=== PATIENT | female | born 2000 | race Caucasian/White ===

== ENCOUNTER 2023-10-21 16:36 | Emergency (ER) | payer OTHER, SELFPAY ==
--- NOTE | ~2023-10-21 | XR_ITS ---
EXAMINATION: XR WRIST, LEFT CLINICAL INFORMATION: Wrist pain, injury COMPARISON: None available. TECHNIQUE: PA, lateral, navicular, and oblique views of the left wrist. FINDINGS: The bones and soft tissues are normal. No fracture. Alignment is anatomic with normal joint spaces. No erosions or abnormal soft tissue calcifications. XR/XR wrist LT min 3V IMPRESSION: Normal left wrist.
[2023-10-21 17:11] VITALS: BP 140/90; PULSE 84; RESP 16; TEMP 36.8; O2SAT 100; BMI 27.3
--- NOTE | 2023-10-21 17:11 | ED_ITS ---
HPI - General Adult General Chief complaint: Extremity Injury, Upper Stated complaint: wrist inj 10/20 Time Seen by Provider: 10/21/23 18:28 Source: patient and family (patient's mother) Mode of arrival: ambulatory Limitations: no limitations History of Present Illness HPI narrative: Patient is a 23 year old assigned female at with no reported medical history presenting to the emergency department today with left hand pain. Patient states that yesterday she was playing rugby when she had her left hand crushed and rolled backwards. Patient states that the majority of her pain is at the base of the 1st and 2nd knuckles and the palm of the hand. Patient denies any head injury, loss of consciousness, dizziness, lightheadedness, abdominal pain, nausea, vomiting, fever, chills, blurry vision, double vision, loss of vision, chest pain, difficulty breathing, shortness of breath, back pain, night sweats, pain with urination, increased urinary frequency, increased urinary urgency, blood in her urine or stool, syncope or a near syncopal episode, bowel incontinence, bladder incontinence, bowel retention, bladder retention, or any other complaints at this time. Onset (ago): day(s) (1) Location: left and upper extremity Severity: mild Severity scale (1-10): 3 Quality: aching and dull Pain Consistency: constant Relieving factors: none Exacerbating factors: none Associated symptoms: denies other symptoms Treatments prior to arrival: none Related Data Allergies Allergy/AdvReac Type Severity Reaction Status Date / Time No Known Allergies Allergy Verified 10/21/23 17:15 [No Known Allergies*] Review of Systems Constitutional: Constitutional: Reports no additional constitutional complaints, Denies chills, Denies fever(s) and Denies night sweats Eyes: Eyes: Reports no additional eye complaints, Denies blurry vision, Denies change in vision, Denies diplopia, Denies eye discharge, Denies loss of vision and Denies eye pain ENT: Denies dizziness Cardiovascular: Cardiovascular: Reports no additional cardiovascular complaints, Denies chest pain, Denies lightheadedness, Denies Loss of Consciousness and Denies dyspnea Respiratory: Respiratory: Reports no additional respiratory complaints and Denies dyspnea Gastrointestinal: Gastrointestinal: Reports no additional gastrointestinal complaints, Denies abdominal pain, Denies melena, Denies hematochezia, Denies change in bowel habits and Denies change in stool character Genitourinary: Genitourinary: Denies hematuria, Denies urinary frequency, Denies dysuria, Denies urinary incontinence, Denies urinary hesitancy and Denies urinary urgency Musculoskeletal: Musculoskeletal: Reports no additional musculoskeletal complaints, Denies numbness and Denies tingling Comments: left hand pain Neurologic: Denies dizziness, Denies loss of vision, Denies numbness and Denies tingling Psychiatric: Psychiatric: Reports no additional psychiatric complaints Endocrine: Endocrine: Reports no additional endocrine complaints Hematologic/Lymphatic: Hematologic/Lymphatic: Reports no additional hematologic/lymphatic complaints Allergic/Immunologic: Allergic/Immunologic: Reports no additional allergic/ immunologic complaints PMFSH Past Medical History Attestation statement: The following information was validated with the patient. (all information validated with the patient's mother) Source: old records reviewed, obtained from family (patient's mother provided additional history and confirmed the history provided by the patient) and nursing notes reviewed Social History Social History Advance Directives: No Advance Directives Information Provided: No Physical Exam ED Vital Signs: Vital Signs - 24 hr 10/21/23 17:11 Temperature 98.2 F Pulse Rate 84 Respiratory Rate 16 Blood Pressure 140/90 H Pulse Oximetry 100 Oxygen Delivery Method Room Air BMI result Body Mass Index 27.3 Const General: cooperative, no acute distress, alert and awake Nutritional Appearance: well nourished Orientation/consciousness: patient oriented x3 Limitations: no limitations HENMT Head: Yes normal to inspection and Yes atraumatic Ears: hearing grossly normal bilaterally and external ears normal General nose exam: Normal external nose present, no nasal discharge noted and no epistaxis Face and sinus: Yes normal facial exam, No abrasion and No laceration Mouth: Normal oral and palatal mucosa present, no drooling and no muffled voice Eyes General: appearance normal, both eyes and all related structures Periorbital: periorbital findings normal Eyelids: Yes eyelids normal Conjunctivae: conjunctivae normal Pupils: Equal, round and reactive pupils present EOM: EOMs intact bilaterally Neck Neck: Yes normal visual inspection, Yes full ROM and Yes no lymphadenopathy Chest Chest palpation & inspection: normal inspection of the chest Resp Effort & Inspection: normal respiratory effort and able to speak in complete sentences GI Inspection: Yes normal to inspection Neuro General: patient oriented x3 and moves all extremities Cranial nerves: Yes Equal, round and reactive pupils present Cognition (Neuro): normal cognition Motor exam (neuro): 5/5 motor strength present throughout Sensory Exam: Normal double simultaneous stimulation for sensation Coordination: [id number] test normal Extrem Other: swelling to the dorsal aspect of the left hand with bruising present to the plamar aspect. Point tenderness at the base of the 2nd metacarpal General: Yes full ROM and Yes capillary refill normal Psych Appearance: grossly normal Mental Status: mental status grossly normal Affect: normal affect Attitude: cooperative Thought process: Normal thought process present Thought content: Normal thought content present Insight: Good insight present (Psych) Course Course Course Narrative: RME performed by Maliha Sierra PA-C. Patient is a 23 year old assigned female at presenting to the emergency department with left wrist pain. Imaging ordered. Patient placed back in the waiting room pending room availability and results. Procedures Orthopedic Splinting/Casting Injury #1: Side: left Upper Extremity Injury Location: wrist and hand Upper Extremity Immobilizer: volar splint Medical Decision Making Medical Decision Making MDM Narrative: Patient is a 23 year old assigned female at with no reported medical history presenting to the emergency department today with left hand pain. Patient's physical exam was as noted in the physical exam portion of this note. Patient's left hand x-ray was interpreted as normal however, I noted a possible fracture at the base of the 2nd metacarpal. Given the patient's physical exam findings and my reading of the XR, patient's has was splinted in a volar splint, without incident. Patient's PMS was intact prior to and after splint placement. I explained my physical exam findings as well as all test results to the patient and the patient's mother. I answered all questions asked by the patient and the patient's mother. I stressed the importance of the patient taking her medication as prescribed. I stressed the importance of the patient following up with her primary care provider and an orthopedic provider. I stressed the importance of the patient returning to the emergency department immediately if her symptoms were to worsen or if she were to develop any dizziness, shortness of breath, difficulty breathing, chest pain, blurry vision, loss of vision, nausea, vomiting, abdominal pain, fever, chills, back pain, or any other complaints. Patient and the patient's mother verbalized agreement and understanding with this treatment plan and discharge. Differential Diagnosis Differential Diagnoses: The differential diagnosis associated with the presentation includes Left hand pain Left hand sprain Left hand fracture Independent Interpretation I performed an independent interpretation of an: Plain X-Ray Interpretation: My interpretation of this plain x-ray is in the MDM Rationale portion of this note. Below is the interpretation from the radiologist. ------ EXAMINATION: XR WRIST, LEFT CLINICAL INFORMATION: Wrist pain, injury COMPARISON: None available. TECHNIQUE: PA, lateral, navicular, and oblique views of the left wrist. FINDINGS: The bones and soft tissues are normal. No fracture. Alignment is anatomic with normal joint spaces. No erosions or abnormal soft tissue calcifications. XR/XR wrist LT min 3V IMPRESSION: Normal left wrist. Dictated By: Meng Coker MD Signed By: Electronically signed by Meng Coker MD 10/21/23 3711 Radiology Impression Discussion of test interpretation with radiology: I have reviewed the radiologist's reading. Independent Historian Clinical information obtained from an independent historian. History obtained from or confirmed by: Parent (patient's mother provided additional history and confirmed the history provided by the patient.) Discharge Plan Discharge Clinical Impression: Fracture of hand Patient Disposition: Home, Self-Care Instructions: Hand Fracture (ED) Additional Instructions: Follow up with your primary care provider and an orthopedic provider. Return to the emergency department immediately if your symptoms worsen or if you develop any dizziness, shortness of breath, difficulty breathing, chest pain, blurry vision, loss of vision, nausea, vomiting, abdominal pain, fever, chills, back pain, or any other complaints. Referrals: [facility] Family Medicine [Provider Group] (Call to establish and follow up with a primary care provider. If you already have a primary care provider, please follow up with them.) [facility] Primary Care, Sandra [Provider Group] (Call to establish and follow up with a primary care provider. If you already have a primary care provider, please follow up with them.) [facility] Primary Care,Zak [Provider Group] (Call to establish and follow up with a primary care provider. If you already have a primary care provider, please follow up with them.) [facility] [place] [facility] [Provider Group] (Call to establish and follow up with an orthopedic provider.) Stand Alone Forms: Work/School Release Interventions: ED Discharge Assessment Last Done: 10/21/23 18:57 Discharge Date/Time: 10/21/23 18:57 Print Language: Bermudian
== END 2023-10-21 18:57 | disposition home or self-care (01) ==
PROVIDERS: Emergency Provider Student in an Organized Health Care Education/Training Program
DX: S62.92XA Unspecified fracture of left hand, initial encounter for closed fracture (principal); W23.0XXA Caught, crushed, jammed, or pinched between moving objects, initial encounter; Y93.63 Activity, rugby; Y92.9 Unspecified place or not applicable; Y99.9 Unspecified external cause status
CPT/HCPCS: 29125; 73110; 99282; 99283

== ENCOUNTER 2023-11-01 08:29 | Outpatient (REF) | payer OTHER, SELFPAY ==
--- NOTE | ~2023-11-01 | XR_ITS ---
EXAMINATION: XR HAND, LEFT CLINICAL INFORMATION: Pain. COMPARISON: Radiographs dated 10/21/2023. TECHNIQUE: PA, lateral, and oblique views of the left hand. FINDINGS: The bones and soft tissues are normal. No fracture. Alignment is anatomic. Joint spaces are maintained. No erosions or soft tissue calcifications. XR/XR hand LT min 3V IMPRESSION: Normal left hand.
== END 2023-11-01 08:30 | disposition home or self-care (01) ==
LOC: HO.HOSX 08:29
PROVIDERS: Visit Provider Physician Assistant
DX: S62.301A Unspecified fracture of second metacarpal bone, left hand, initial encounter for closed fracture (principal)
CPT/HCPCS: 73130

== ENCOUNTER 2023-11-01 08:29 | Outpatient (AMB) | payer OTHER, SELFPAY ==
--- NOTE | 2023-11-01 08:37 | A.OFFVIS_ITS ---
Intake Vital Signs 11/01/23 08:44 Height 5 ft 3 in Weight 153 lb BMI 27.1 Intake Visit Reasons: FC - Left hand fx, DOI 10/20/23 Intake Note: Leila 23 yr old female who is left hand dominant presents today for her left hand injury s/ ED visit. .Patient states on 10/20/23 she was playing rugby when she had her left hand crushed and rolled backwards. Patient states that the majority of her pain is at the base of the 1st and 2nd knuckles and the palm of the hand. States she was splinted. Currently states her pain is mild. Alverto numbness and tingling. Allergies No Known Allergies [No Known Allergies*] Allergy (Verified 11/01/23 08:39) HPI FC - Left hand fx, DOI 10/20/23 HPI Details Ms. Smith is a 23 yo left hand dominant female who presents to the office today for evaluation of left hand pain. She states that roughly two weeks ago she was playing rugby and went to score a try and while placing the ball down her hand rolled forward hyperextending and points to the level of the MCP's. She had immediate pain and was seen at the [facility] ED were x-rays were obtained and there was a question of a fracture at the proximal end of the second metacarpal. She was placed into a splint and instructed to follow-up out patient for further evaluation and treatment. 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 Edema located over the second metacarpal base at the fracture site accompanied by tenderness to palpation. No tenderness to palpation in the anatomical snuff box or scaphoid tubercle. Able to make a full fist and perform full extension, abduction, adduction, finger cross, okay sign, and thumbs up without deficit. Sensation is intact. Radial pulse intact. capillary refill brisk. Office Procedures Fracture Care Fracture Billing Code: Fracture Billing Code Assessment & Plan Assessment & Plan (1) Fracture of second metacarpal bone of left hand: Code(s): S62.301A - Unspecified fracture of second metacarpal bone, left hand, initial encounter for closed fracture Plan: Ms. Smith is a 23 yo left hand dominant female who presents to the office today for evaluation of left hand pain. She states that roughly two weeks ago she was playing rugby and went to score a try and while placing the ball down her hand rolled forward hyperextending and points to the level of the MCP's. She had immediate pain and was seen at the [facility] ED were x-rays were obtained and there was a question of a fracture at the proximal end of the second metacarpal. She was placed into a splint and instructed to follow-up out patient for further ev aluation and treatment. The patient was placed in a velcro wrist splint that comes up higher on the MCP's off the shelf. There is no concern for a scaphoid fracture at this time on physical exam nor repeat x-rays that were obtained in the office today and reviewed by me, Liseth Lopez PA-C. On x-rays there is redemonstration of the second metacarpal base fracture with minimal displacement. She was instructed no lifting greater than coffee cup or cell phone. She may come out of the splint for hand washing and bathing. I would like to see her back in 4 weeks with repeat x-rays sooner if needed. Orders: Orders XR hand LT min 3V Today M79.643 - Pain in unspecified hand Coding Level of Care Code New Pt Level 4 (67926) Diagnoses Fracture of second metacarpal bone of left hand S62.301A CPT Codes Fracture Care - Fracture Billing Code: Fracture Billing Code ([id number])
[2023-11-01 08:44] VITALS: BMI 27.1
== END 2023-11-01 09:18 | disposition home or self-care (01) ==
PROVIDERS: Visit Provider Physician Assistant
DX: S62.301A Unspecified fracture of second metacarpal bone, left hand, initial encounter for closed fracture (principal)
CPT/HCPCS: 99203

== ENCOUNTER 2023-12-06 09:13 | Outpatient (REF) | payer OTHER, SELFPAY ==
--- NOTE | ~2023-12-06 | XR_ITS ---
EXAMINATION: XR HAND, LEFT CLINICAL INFORMATION: Pain COMPARISON: 11/01/2023 TECHNIQUE: PA, lateral, and oblique views of the left hand. FINDINGS: The bones and soft tissues are normal. No fracture. Alignment is anatomic. Joint spaces are maintained. No erosions or soft tissue calcifications. XR/XR hand LT min 3V IMPRESSION: Normal left hand, without interval change.
== END 2023-12-06 09:14 | disposition home or self-care (01) ==
LOC: HO.HOSX 09:13
PROVIDERS: Visit Provider Physician Assistant
DX: S62.301D Unspecified fracture of second metacarpal bone, left hand, subsequent encounter for fracture with routine healing (principal)
CPT/HCPCS: 73130

== ENCOUNTER 2023-12-06 10:49 | Outpatient (AMB) | payer OTHER, SELFPAY ==
--- NOTE | 2023-12-06 11:19 | MHC.OFFVIS ---
Intake Intake Visit Reasons: OV- Left hand fx, DOI 10/20/23 Intake Note: Leila is a 23 year old female who presents today for a follow up for her left hand fx, DOI 10/20/23. patient reports having discomfort on the palm of her hand when she tries to open lids. Allergies No Known Allergies [No Known Allergies*] Allergy (Verified 11/01/23 08:39) HPI OV- Left hand fx, DOI 10/20/23 HPI Details 23-year-old left hand dominant female who presents in the office today for a follow up on a fracture of the left second metacarpal. I last saw the patient in the office on 11/01/2023 where she was placed in a velcro wrist splint and she instructed no lifting greater than a coffee cup or cell phone. She was told she may come out of the splint for hand washing or bathing. While in the office today the patient reports having discomfort on the palm of her left hand when she tries to open lids. 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 Edema located over the second metacarpal base at the fracture site has resolved with no tenderness to palpation. No tenderness to palpation in the anatomical snuff box or scaphoid tubercle. Able to make a full fist and perform full extension, abduction, adduction, finger cross, okay sign, and thumbs up without deficit. Slight evaluation analyst strength weakness. Sensation is intact. Radial pulse intact. capillary refill brisk. Assessment & Plan Assessment & Plan (1) Fracture of second metacarpal bone of left hand: Code(s): S62.301A - Unspecified fracture of second metacarpal bone, left hand, initial encounter for closed fracture Qualifiers: Encounter type: subsequent encounter Fracture alignment: nondisplaced Fracture healing: with routine healing Fracture type: closed Metacarpal location: unspecified portion of metacarpal Qualified Code(s): S62.301D - Unspecified fracture of second metacarpal bone, left hand, subsequent encounter for fracture with routine healing Plan Ms. Smith is a 23-year-old left hand dominant female who presents in the office today for a follow up on a fracture of the left second metacarpal. I last saw the patient in the office on 11/01/2023 where she was placed in a velcro wrist splint and she instructed no lifting greater than a coffee cup or cell phone. She was told she may come out of the splint for hand washing or bathing. While in the office today the patient reports having discomfort on the palm of her left hand when she tries to open lids. The patient may discontinue the velcro wrist splint at this time. I would encourage her to attend occupational therapy to work on evaluation analyst strength. She should complete all visits until evaluation analyst strength returns back to normal and she can progress to normal activities as tolerated. Follow up will be PRN, or sooner if needed. X-rays of the left hand which were obtained while in the office today and were reviewed by me, Liseth Lopez PA-C, revealed routine healing of a left second metacarpal fracture. Orders: Orders XR hand LT min 3V Today M79.643 - Pain in unspecified hand OT Evaluation and Treatment Today S62.301A - Unspecified fracture of second metacarpal bone, left hand, initial encounter for closed fracture, S62.308A - Unspecified fracture of other metacarpal bone, initial encounter for closed fracture Patient Instructions: Scribed for Liseth Lopez PA-C by Stephanie Theodore biomedical engineering aide, on 12/06/2023 at 10:50 am, EST. Coding Level of Care Code Est Pt Level 3 (78206) Diagnoses Closed nondisplaced fracture of second metacarpal bone of left hand with routine healing, unspecified portion of metacarpal, subsequent encounter S62.301D Encounter type: subsequent encounter Fracture alignment: nondisplaced Fracture healing: with routine healing Fracture type: closed Metacarpal location: unspecified portion of metacarpal
== END 2023-12-06 11:29 | disposition home or self-care (01) ==
PROVIDERS: Visit Provider Physician Assistant
DX: S62.301D Unspecified fracture of second metacarpal bone, left hand, subsequent encounter for fracture with routine healing (principal)
CPT/HCPCS: 99213

== ENCOUNTER 2024-12-04 09:53 | Outpatient (AMB) | payer BC, SELFPAY ==
--- NOTE | 2024-12-04 10:13 | A.OFFPC_ITS ---
Vital Signs 12/04/24 10:21 12/04/24 17:33 Height 5 ft 3 in Weight 157 lb BMI 27.8 BP 122/70 Blood Pressure Location Rt brachial Position Sitting Respiration 13 Pulse 110 H 90 Pulse Source Pulse Oximeter Auscultation Pulse Oximetry (%) 98 Oxygen Delivery Method Room Air Intake Visit Reasons: Est. 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: No Allergies No Known Allergies [No Known Allergies*] Allergy (Verified 12/04/24 10:31) Medication List - [facility] 12[facility]04[facility]24 [facility] No Known Home Meds Tobacco use date assessed: 12/04/24 Dental Screening Dental Screen Date: 12/04/24 Did you have a dental visit in the last 12 months?: No Did you have a dental problem in the last 6 months where you did not have access to dental care?: No Was dental information given to patient?: Patient has dentist HPI HPI Comments History of Present Illness Details 24 y/o F with Surgical hx: none Family hx: thyroid cancer maternal great uncle Social hx: living w/ Mom and Dad; 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 Health Maintenance: Tdap today Flu declined Pap January 2023, repeat 2023 @ [facility]; now at [facility] Special[facility]: MOSAICIST Here today to est care and for a CPE No previous medical records avail. c/o L sided neck lumps. The lumps were first noticed a few months ago when the patient was sick. They have not changed in size since appearing. The patient reports they do not hurt but is concerned about their presence. The lumps appeared in conjunction with a sickness episode and have been stable since then. She mentions a history of strep throat last year for which antibiotics were prescribed, but no antibiotics have been taken for the current condition. The patient denies smoking. Her family history includes a great uncle with thyroid cancer. She reports no recent lab work or blood tests. In addition, the patient has a history of a spinal fracture attributed to gymnastics as well as a suspected musculoskeletal dent in her left thigh, possibly related to swimming. No surgeries have been performed for these conditions. She occasionally consults a chiropractor for these issues. The patient also mentioned having regular Pap smears with the most recent results reported as normal. There is a noted history of a period of anxiety, described as lifelong, without a specific inciting event, related to health. Review of Systems - Lymphatic: Reports lumps in the neck - Musculoskeletal: Reports a history of spinal fracture and musculoskeletal dent in the back - Respiratory: Denies shortness of breat h - Psychiatric: Reports being anxious Exam: General: Well developed, well nourished, in no acute distress. Appears stated age. Head: Normocephalic, atraumatic. Eyes: Pupils are equal, round and reactive to light and accommodation. Conjunctivae are clear. Vision grossly normal. Ears: TMs clear AU, EACS WNL Nose: Patent, scant yellow d/c w/o sinus tenderness . Mouth: There are no ulcers or lesions noted. No inflammation, no post nasal drip, no plaques nor exudates. Neck: Supple,no thyromegaly or tenderness. There are palpable soft anterior cervical lymphnodes bilat more prominent on the L, nontender; there is also shotty adenopathy along manible bilat, again more on L Lungs: Clear to auscultation bilaterally. No rales, rhonchi or wheeze noted. Good air flow in all gonzalez. Heart: Regular rate and rhythm. No murmurs, click, rubs or gallops are noted. Abdomen: Bowel sounds present in all quadrants. The abdomen is soft, nontender, with no masses or organomegaly noted. No hernias are noted. Musculoskeletal: Joints are nontender, without swelling, redness, or effusions. Range of motion is observed to be normal. She has two indents in her L quad muscle when she contracts this muscle. Pulses: Peripheral pulses are equal and palpable bilaterally. Extremities: No clubbing, cyanosis nor edema is noted. Neurologic: Gait and station normal. Cranial Nerves 2-12 intact. Motor strength grossly symmetrical and intact. No sensory loss. Balance normal. Skin: No rashes, ulcers, or lesions noted. Turgor is good. Skin color is good. Hair and nails are without abnormalities. Psych: Normal eye contact, affect and mood appropriate, and normal interactions. Patient is alert and appropriate to context. Plan - Conduct laboratory tests - Arrange MRI for musculoskeletal evalua tion due to unusual dent in Quad on L . - Administer tetanus vaccination. - Consider ultrasound of the neck if lab results indicate necessity or CT imaging w/ contrast. - Monitor neck lumps for changes, consid er further imaging if persistent. Patient was informed and verbally consented to the use of an ambient scribe for clinic note documentation during this visit. Discussion Notes I discussed the possible causes of the neck lumps, noting that they might be reactive lymph nodes. Given the family history of thyroid cancer, we will start with laboratory tests to rule out thyroid dysfunction and other causes of lymphadenopathy. The musculoskeletal issues related to the quad dent were reviewed, and an MRI was recommended to clarify the musculoskeletal structure. For the lumps, if labs suggest further evaluation, an ultrasound of the neck may be pursued, but a CT scan is not preferred due to radiation exposure unless absolutely necessary. The patient was informed about having vaccinations updated, and the possibility of an orthopedic referral was mentioned in case the MRI indicates specific musculoskeletal pathology. Follow-up will occur post-MRI results. Patient Instructions - Get the tetanus shot today. - Proceed with lab tests as directed. - Watch for any changes in the neck lump s and report them immediately. - Anticipate MRI scheduling for further examination of the back. - Use the patient portal for communicati on and appointment scheduling. - Follow up with any results or concerns as discussed today. RTO 6-8 weeks to review testing results, sooner PRN This note is constructed using voice recognition software. While every effort has been made to ensure accuracy in tube former operator, still errors may have been included Sometimes, these errors may affect the content or meaning of the given sentence . An additional 30 minutes was spent addressing the problem(s) noted at todays visit. This includes time spent before the visit reviewing the chart, time spent during the visit, and time spent after the visit on documentation [facility] Medical History (Updated 12/04/24 @ 17:32 by Larisa Nichols, [facility]) Fracture of second metacarpal bone of left hand Fracture of second metacarpal bone Hand fracture, left Spinal compression fracture Spinal fracture of T12 vertebra Surgical History (Updated 12/04/24 @ 10:20 by Tyrone King MA) No pertinent past surgical history Family History Father Mental health disorder Paternal Grandfather Cancer Paternal Grandmother Cancer Maternal Grandmother Cancer Diabetes Brother Asthma Mother Thyroid disease Social History (Updated 12/04/24 @ 10:17 by Tyrone King MA) Household Members: Family Housing: House Are you a primary complex care nurse to a significant other at home: No Do you presently have visiting nurse or other home services: No Alcohol intake: current Alcohol intake frequency: a few times a month Patient Tobacco Use Status: Never used Tobacco e-Cigarette/Vaping Use: Never Used Second Hand Smoke Exposure: No service: No Current occupational status: employed 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 1. Little interest or pleasure in doing things: not at all 2. Feeling down, depressed, or hopeless: not at all 3. Trouble falling or staying asleep, or sleeping too much: several days 4. Feeling tired or having little energy: not at all 5. Poor appetite or overeating: not at all 6. Feeling bad about yourself - or that you are a failure or have let yourself or your family down: not at all 7. Trouble concentrating on things, such as reading the newspaper or watching television: not at all 8. Moving or speaking so slowly that other people could have noticed. Or the opposite - being so fidgety or restless that you have been moving around a lot more than usual: not at all 9. Thoughts that you would be better off or of hurting yourself in some way: not at all Total score: 1 Depression Screening Interpretation: Negative Depression Screening Done: Yes 00196 - PHQ-9 Billing: Yes Source: Developed by Drs. Jimbo Child, Cynthia Mcguire, Demetrio Mcmanus and colleagues, with an educational catrachito from [employer]. Thrive Questionnaire Date Thrive assessed: 12/04/24 I am a: Patient What is your living situation today?: I have a steady place to live Within the past 12 months, did the food you bought not last and you didn't have the money to get more?: Never true Within the past 12 months, did you worry whether your food would run out before you got money to buy more?: Never true Do you have trouble paying for medicines?: No Do you have trouble getting transportation to medical appointments?: No Do you have trouble paying your heating and electricity bill?: No Do you have trouble taking care of your child, family member or friend?: No Do you have trouble with day-to-day activities such as bathing, preparing meals, shopping, managing finances, etc.?: No Are you currently unemployed and looking for a job?: No Are you interested in more education?: No Please select the resources that you would like help with: None Currently or been in a relationship where the following occur: No concerns reported THRIVE Score: 0 AUDIT C Alcohol Use Questionnaire (AUDIT-C) 1. How often do you have a drink containing alcohol?: Monthly or less 2. How many drinks containing alcohol do you have on a typical day when you are drinking?: 3 or 4 3. How often do you have six or more drinks on one occasion?: Never Total Score: 2 Score Reviewed/Action Taken: Yes ABA-7 AMB Questionnaire ABA-7 Date ABA - 7 assessed: 12/04/24 Feeling nervous, anxious, or on edge: 1 = Several days Not being able to stop or control worryin = Not at all Worrying too much about different things: 0 = Not at all Trouble relaxin = Not at all Being so restless that it is hard to sit still: 0 = Not at all Becoming easily annoyed or irritable: 0 = Not at all Feeling afraid as if something awful might happen: 0 = Not at all Total ABA-7 score (0-4 normal; 5-9 mild; 10-14 moderate; 15-21 severe): 1 Source: Developed by Drs. Jimbo Child, Cynthia Mcguire, Demetrio Mcmanus and colleagues, with an educational catrachito from [employer]. ABA-7 Assessment Billing ABA-7 Assessment Tool: ABA-7 Assessment 39860 Physical exam (Primary Care) Vital Signs: Last Vital Signs Pulse 110 H 12/04/24 10:21 Resp 13 12/04/24 10:21 BP 122/70 12/04/24 10:21 Pulse Ox 98 12/04/24 10:21 Oxygen Delivery Method Room Air 12/04/24 10:21 BMI result Body Mass Index 27.8 Tobacco/Smoking Status: Tobacco use Status Tobacco use date assessed 12/04/24 12/04/24 10:23 Patient Tobacco Use Status Never used Tobacco 12/04/24 10:23 e-Cigarette/Vaping Use Never Used 12/04/24 10:23 PHQ-9: PHQ-9 Score PHQ-9: Total score 1 12/04/24 17:10 Depression Screening Interpretation: Negative Thrive Assessment: Date of Thrive Assessment Date Thrive assessed 12/04/24 12/04/24 10:13 Currently or been in a relationship where the following occur: No concerns reported Immunizations Boostrix Tdap 2.5 Lf unit-8 mcg-5 Lf/0.5 mL intramuscular syringe Performing Provider: DEANDRA Barbosa Performing Location: [facility] Administered by: Denise Cantu RN on 12/04/24 10:59 Dose Route Admin Location Dispensed Lot Number Expiration Date [facility] Aircraft 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 Repairer 0.5 mL IM Right Deltoid 0.5 mL [id number] 02/17/27 [id number] OMG VIS Given Date VIS Provided VIS Publication Date 12/04/24 Single Vaccine 21 Eligibility Eligibility Date Funding Source Not [facility] Eligible 12/04/24 Private Coding Level of Care Code New Pt Level 3 (08273) New Pt Prev Care 18-39yr(87861 Diagnoses Encounter for general adult medical examination with abnormal findings Z00.01 Laboratory exam ordered as part of routine general medical examination Z00.00 Need for Tdap vaccination Z23 Influenza vaccination declined Z28.21 Injury of quadriceps muscle S76.109A Lymphadenopathy R59.1 History of compression fracture of spine Z87.81 History of fracture of wrist Z87.81 Family history of thyroid cancer Z80.8 Anxiety about health R45.89 Encounter to establish care Z76.89 Additional Codes ABA-7 Assessment Billing - ABA-7 Assessment Tool: ABA-7 Assessment 20984 ([id number]) PHQ-9 - 14004 - PHQ-9 Billing: Yes ([id number]) Assessment & Plan Assessment & Plan (1) Encounter for general adult medical examination with abnormal findings: Code(s): Z00.01 - Encounter for general adult medical examination with abnormal findings (2) Laboratory exam ordered as part of routine general medical examination: Code(s): Z00.00 - Encounter for general adult medical examination without abnormal findings Category: Medical (3) Need for Tdap vaccination: Code(s): Z23 - Encounter for immunization (4) Influenza vaccination declined: Code(s): Z28.21 - Immunization not carried out because of patient refusal (5) Injury of quadriceps muscle: Code(s): S76.109A - Unspecified injury of unspecified quadriceps muscle, fascia and tendon, initial encounter Category: Medical (6) Lymphadenopathy: Code(s): R59.1 - Generalized enlarged lymph nodes Category: Medical (7) History of compression fracture of spine: Comment: t12 Code(s): Z87.81 - Personal history of (healed) traumatic fracture Category: Medical (8) History of fracture of wrist: Comment: left Code(s): Z87.81 - Personal history of (healed) traumatic fracture Category: Medical (9) Family history of thyroid cancer: Code(s): Z80.8 - Family history of malignant neoplasm of other organs or systems Category: Medical (10) Anxiety about health: Code(s): R45.89 - Other symptoms and signs involving emotional state Category: Medical (11) Encounter to establish care: Code(s): Z76.89 - Persons encountering health services in other specified circumstances Plan , Orders: Orders Hemoglobin A1c Today Z00.00 - Encounter for general adult medical examination without abnormal findings Lipid Panel Today Z00.00 - Encounter for general adult medical examination without abnormal findings TDaP Immunization Today Z23 - Encounter for immunization Erythrocyte Sedimentation Rate Today R59.1 - Generalized enlarged lymph nodes Complete Blood Count no Diff Today Z00.00 - Encounter for general adult medical examination without abnormal findings Comprehensive Met. Panel Today Z00.00 - Encounter for general adult medical examination without abnormal findings Microalbumin, Random (w Creat) Today Z00.00 - Encounter for general adult medical examination without abnormal findings TSH reflex Free T4 Today Z00.00 - Encounter for general adult medical examination without abnormal findings Vitamin D 25-OH Total Today Z00.00 - Encounter for general adult medical examination without abnormal findings Thyroid Peroxidase Antibodies Today Z00.00 - Encounter for general adult medical examination without abnormal findings MR femur LT w con Today S76.109A - Unspecified injury of unspecified quadriceps muscle, fascia and tendon, initial encounter CRP High Sensitivity Today R59.1 - Generalized enlarged lymph nodes Patient Instructions: Walk-In Care (Urgent Care): We Make it Easy Walk-in for urgent medical issues such as: ? Seasonal Allergies ? Insect Bites ? Cough ? Diarrhea ? Acute Asthma Attacks ? Back, Knee or Joint Pain ? Ear Infection ? Fever without a Rash ? Headaches ? Nausea ? [place], Rash or Skin Irritation ? Sore Throat ? Sports Physicals ? Vomiting Most insurances are accepted. Patients do not need to be part of the [facility] to seek care at the walk-in clinic. Locations [address] [facility] [place] [address] ? [phone] [facility] Walk-In Care in [place] provides services to ages 18 and over. Open Saturday-Saturday: 8 a.m. to 5 p.m. and Saturday: 9 a.m. to 3 p.m.* *Hours may vary due to staffing availability. To confirm Walk-In Care hours in [place], please call [phone]. [address] [place] [address] ? [phone] [facility] Walk-In Care in [place] provides services to ages 12 and over. Open Saturday-Saturday: 8 a.m. to 5 p.m. Hours may vary due to staffing availability. To confirm Walk-In Care hours in [place], please call [phone]. LABORATORY SERVICES: [facility] ? Primary Location [address] [place] [address] Saturday through Saturday 6:00 AM ? 5:00 PM Saturday 7:00 AM ? 11:00 AM* [phone] The [facility] is centrally located near the front entrance of the Medical Center for easy outpatient access. Convenient parking is provided for outpatients. *Hours may vary due to staffing availability. To confirm Laboratory hours for any location, please call [phone]. Offsite Location For your convenience, we offer offsite laboratory draw stations at the following locations: [address] [place] [address] ? [facility] [address], [address] [place] [address] Saturday through Saturday 7:30 AM ? 1:00 PM* [phone] *Hours may vary due to staffing availability. To confirm Laboratory hours for any location, please call [phone]. [place] ? [address] Saturday through Saturday 6:00 AM ? 3:30 PM* Saturday 6:30 AM ? 3 PM* [phone] *Hours may vary due to staffing availability. To confirm Laboratory hours for any location, please call [phone]. [address] [facility] Saturday through Saturday 7:30 AM ? 4:00 PM* [phone] *Hours may vary due to staffing availability. To confirm Laboratory hours for any location, please call [phone]. [address] [facility] Saturday through 9:00 AM ? 4:00 PM* *Hours may vary due to staffing availability. To confirm Laboratory hours for any location, please call [phone]. Appointments are not necessary. Walk-ins are welcome. Like all the departments throughout the [facility], our Lab undergoes frequent reviews to ensure the quality and accuracy of test results, and our staff takes special pride in its status as a nationally accredited facility. Patient Portal: ONE PATIENT. ONE RECORD. BETTER CARE. [facility] has a fully integrated, cutting- edge mobile electronic health information system that has revolutionized the way we care for our patients and manage our organization. This system improves communication and coordination enabling us to provide safe, higher-quality care, and an overall positive experience for staff and patients. Our first priority, as always, is to deliver the highest quality care possible. The system is running in the background supporting that priority. This portal is for all [facility] and [facility] services and practices. If you are experiencing any technical difficulties with enrolling or logging into the Patient Portal please complete the [facility] Patient Portal Technical Support Form. [facility] and [facility] now offers a new secure on-line interactive tool for patients to review their health information ? ?Patient Portal. This interactive web portal will enable patients and their families to take an active role in their care by providing easy, secure access to their health information via the internet. The Patient Portal provides patients with instant access to their health information, including laboratory results, medications, allergies, demographic information, visit history, and more. In addition to managing their own care, parents and health care proxies with authorized consent will appreciate the ability to access the records of those individuals for whom they provide care. Please note: if you wish to gain access (Proxy) to another patient?s portal, you will be required to come to the Medical Records Department in person at [facility]. Both the patient giving proxy access and the proxy will need to provide photo identification and complete the appropriate authorization. The Patient Portal also allows track their appointments online. The [facility] Patient Portal also saves patients time by allowing them to submit updates to their demographic and contact information prior to their visits. Portal email notifications will also alert patients to any new activity on their portal, such as test results and new appointments. In order to initially enroll in the [facility] Patient Portal, you will need to enter some required information including the following: * your [facility] Medical Record number * your personal home email address * name * date of Please note: In order to enroll in the [facility] Patient Portal, we need to have your email address on file in your electronic medical record. ?The email address needs to be specific for one person (yourself) in order for your Portal enrollment to be successful. ?You can update your email address in person with our Registration staff when you are registering for a hospital visit. ?Otherwise, you will need to come to the Health Information Management (Medical Records) Department at [facility]. ?We are open from Saturday ? Saturday from 7:30 a.m. ? 4:30 p.m. ?You will be required to present a photo id. Once you have successfully enrolled in the Patient Portal, you will receive a one-time user id and password for the Portal, sent to your email address. ?This will allow you to log into the Patient Portal within 99 hrs and reset your own logon id and password, and define personal security questions. ?Once your permanent login and password have been set, you can log into the [facility] Patient Portal at any time via the blue button above or from the Portal Logon button on any page of the [facility] website. [facility] and [facility] encourage all of our patients to enroll in Patient Portal as it presents a valuable opportunity for patients and their families to actively participate in their care and stay healthy Welcome to [facility]. ?We look forward to working with you. Health screenings for women You should visit your health care provider from time to time, even if you are healthy. The purpose of these visits is to: Screen for medical issues Assess your risk for future medical problems Encourage a healthy lifestyle Update vaccinations and other preventive care services Help you get to know your provider in case of an illness Information Even if you feel fine, you should still see your provider for regular checkups. These visits can help you avoid problems in the future. For example, the only way to find out if you have high blood pressure is to have it checked regularly. High blood sugar and high cholesterol levels also may not have any symptoms in the early stages. A simple blood test can check for these conditions. There are specific times when you should see your provider or receive specific health screenings. The [place] Preventive Services Task Force publishes a list of recommended screenings. Below are screening guidelines for women ages 18 to 39. BLOOD PRESSURE SCREENING Your blood pressure should be checked at least once every 3 to 5 years if: Your blood pressure is in the normal range (top number less than 120 mm Hg and bottom number less than 80 mm Hg) You don't have risk factors for high blood pressure Ask your provider if you need your blood pressure checked more often if: The top number is 120 to 129 mm Hg or the bottom number is 70 to 79 mm Hg You have diabetes, heart disease, kidney problems, are overweight, or have certain other health conditions You have a first-degree relative with high blood pressure You are Black You had high blood pressure during a If the top number is 130 mm Hg or greater or the bottom number is 80 mm Hg or greater, this is considered stage 1 hypertension. Schedule an appointment with your provider to learn how you can reduce your blood pressure. Watch for blood pressure screenings in your area. Ask your provider if you can stop in to have your blood pressure checked. BREAST CANCER SCREENING Experts do not agree about the benefits of breast self-exams in finding breast cancer or saving lives. Talk to your provider about what is best for you. A screening mammogram is not recommended for most women under age 40. Your provider may discuss and recommend mammograms, MRI scans, or ultrasounds if you have an increased risk for breast cancer, such as: A mother or sister who had breast cancer at a young age (most often starting screening earlier than the age the close relative was diagnosed) You carry a high-risk genetic marker CERVICAL CANCER SCREENING Cervical cancer screening should start at age 21 years unless your provider advises otherwise. After the first test: Women ages 21 through 29 should have a Pap test every 3 years. Exoprts do not agree on whether HPV testing is recommended for this age group. Women ages 30 through 65 should be screened with either a Pap test every 3 years or the HPV test every 5 years or both tests every 5 years (called cotesting ). Women who have been treated for precancer (cervical dysplasia) should continue to have Pap tests for 20 years after treatment or until age 65, whichever is longer. If you have had your uterus and cervix removed (total hysterectomy), and you have not been diagnosed with cervical cancer or precancer (high grade cervical neoplasia), you do not need cervical cancer screening. CHOLESTEROL SCREENING Cholesterol screening should begin at: Age 45 for women with no known risk factors for coronary heart disease Age 20 for women with known risk factors for coronary heart disease Repeat cholesterol screening should take place: Every 5 years for women with normal cholesterol levels More often if changes occur in lifestyle (including weight gain and diet) More often if you have diabetes, heart disease, kidney problems, or certain other conditions DIABETES SCREENING You should be screened for diabetes starting at age 35 and then repeated every 3 years if you have no risk factors for diabetes. Screening may need to start earlier and be repeated more often if you have other risk factors for diabetes, such as: You have a first degree relative with diabetes. You are overweight or have obesity. You have high blood pressure, prediabetes, or a history of heart disease. Screening for diabetes should be done if you are planning to become and you are overweight and have other risk factors such as high blood pressure. DENTAL EXAM Go to the dentist once or twice every year for an exam and cleaning. Your dentist will evaluate if you need more frequent visits. EYE EXAM Have an eye exam every 5 to 10 years before age 40. If you have vision problems, have an eye exam every 2 years or more often if recommended by your provider. You should have an eye exam that includes an examination of your retina (back of your eye) at least every year if you have diabetes. IMMUNIZATIONS Commonly needed vaccines include: Flu shot: get one every year. COVID-19 vaccine: ask your provider what is best for you. Tetanus-diphtheria and acellular pertussis (Tdap) vaccine: have one at or after age 19 as one of your tetanus-diphtheria vaccines if you did not receive it as an adolescent. Tetanus-diphtheria: have a booster (or Tdap) every 10 years. Varicella vaccine: receive 2 doses if you never had chickenpox or the varicella vaccine. Hepatitis B vaccine: receive 2, 3, or 4 doses, depending on your exact circumstances. Measles, mumps, and rubella (MMR) vaccine: receive 1 to 2 doses if you are not already immune to MMR. Your provider can tell you if you are immune. Ask your provider about the human papillomavirus (HPV) vaccine if: You have not received the HPV vaccine in the past You have not completed the full vaccine series (you should catch up on this shot) Ask your provider if you should receive other immunizations if you have certain health problems that increase your risk for some diseases such as pneumonia. INFECTIOUS DISEASE SCREENING Women who are sexually active should be screened for chlamydia and gonorrhea up until age 25. Women 25 years and older should be screened for chlamydia and gonorrhea if at high risk. Screening for hepatitis C: All adults ages 18 to 79 should get a one-time test for hepatitis C. people should be screened at every . Screening for human immunodeficiency virus (HIV): All people ages 15 to 65 should get a one-time test for HIV. Depending on your lifestyle and medical history, you may also need to be screened for infections such as syphilis and HIV, as well as other infections. PHYSICAL EXAM All adults should visit their provider from time to time, even if they are healthy. The purpose of these visits is to: Screen for disease Assess your risk of future medical problems Encourage a healthy lifestyle Update your vaccinations and other preventive care services Maintain a relationship with a provider in case of an illness Your height, weight, and BMI should be checked at every exam. During your exam, your provider may ask you about: Depression and anxiety Diet and exercise Alcohol and tobacco use Safety issues, such as using seat belts, smoke detectors, and intimate partner violence Your medicines and risk for interactions SKIN SELF-EXAM Your provider may check your skin for signs of skin cancer, especially if you're at high risk, such as if you: Have had skin cancer before Have close relatives with skin cancer Have a weakened immune system OTHER SCREENING Talk with your provider about colon cancer screening if you have a strong family history of colon cancer or polyps, or if you have had inflammatory bowel disease or polyps yourself. Routine bone density screening of women under 40 is not recommended.
[2024-12-04 10:21] VITALS: BP 122/70; PULSE 110; RESP 13; O2SAT 98; BMI 27.8
[2024-12-04 17:33] VITALS: PULSE 90
== END 2024-12-04 10:57 | disposition home or self-care (01) ==
PROVIDERS: PCP Nurse Practitioner Family; Visit Provider Nurse Practitioner Family
DX: Z00.00 Encounter for general adult medical examination without abnormal findings (principal); S76.109A Unspecified injury of unspecified quadriceps muscle, fascia and tendon, initial encounter; Z87.81 Personal history of (healed) traumatic fracture; Z28.21 Immunization not carried out because of patient refusal; R59.1 Generalized enlarged lymph nodes; Z80.8 Family history of malignant neoplasm of other organs or systems; Z23 Encounter for immunization; R45.89 Other symptoms and signs involving emotional state; Z76.89 Persons encountering health services in other specified circumstances

== ENCOUNTER → 2024-12-04 09:53 | Outpatient (BNVA) | payer BC, SELFPAY | PROVIDERS: Visit Provider Nurse Practitioner Family | DX: Z00.01 Encounter for general adult medical examination with abnormal findings (principal); Z23 Encounter for immunization; S76.109A Unspecified injury of unspecified quadriceps muscle, fascia and tendon, initial encounter; R59.1 Generalized enlarged lymph nodes; R45.89 Other symptoms and signs involving emotional state; Z87.81 Personal history of (healed) traumatic fracture; Z80.8 Family history of malignant neoplasm of other organs or systems | CPT/HCPCS: 90471; 90715; 96127 ==

== ENCOUNTER 2024-12-04 11:25 | Outpatient (REF) | payer BC, SELFPAY ==
[2024-12-04 14:12] LABS: Hematocrit 43.4 % (37.0-47.0); Hemoglobin 15.1 g/dl (12.0-16.0); Mean Corpuscular HGB Conc 34.8 g/dl (31.0-35.0); Mean Corpuscular Volume 89.1 fL (80.0-98.0); Mean Platelet Volume 10.7 fL (9.4-12.3); Platelet Count 222 X10*3/uL (160-400); Red Blood Count 4.87 X10*6/uL (4.20-5.50); Red Cell Distribution Width 11.6 % (11.0-16.0); White Blood Count 8.1 X10*3/uL (4.8-10.8)
[2024-12-04 14:41] LABS: Creatinine Urine 75.99 mg/dL; Microalbumin Urine < 5.0 mg/L
[2024-12-04 14:49] LABS: Erythrocyte Sedimentation Rate 6 MM/HR (0-20)
[2024-12-04 14:54] LABS: Estimated Average Glucose 91 mg/dL; Hemoglobin A1C 114.5547 umol/L; Hemoglobin A1c % 4.8 % (<6.0); Total Hemoglobin (HGBA1C) 3940.0167 umol/L
[2024-12-04 14:55] LABS: Alanine Aminotransferase 20 U/L (0-31); Albumin Level 4.5 g/dL (3.5-5.0); Alkaline Phosphatase 75 U/L (39-117); Anion Gap 12 (12-20); Aspartate Amino Transferase 23 U/L (5-31); Bilirubin Total 0.3 mg/dL (0.0-1.0); Blood Urea Nitrogen 8 mg/dL (9-16); Calcium 9.1 mg/dL (8.4-10.2); Carbon Dioxide 26 mmol/L (22-29); Chloride 105 mmol/L (96-108); Cholesterol 131 mg/dL (<200); Estimated Glomerular Filt Rate > 60; Glucose Random 100 mg/dL (60-115); HDL Cholesterol 53 mg/dL (>40); LDL Cholesterol Calculated 60 mg/dL (<100); Potassium 3.9 mmol/L (3.3-5.1); Sodium 139 mmol/L (135-145); Total Protein 7.4 g/dL (6.5-8.0); Triglycerides 91 mg/dL (<150)
[2024-12-04 15:03] LABS: TSH reflex Free T4 0.38 uIU/mL (0.32-4.0); Vitamin D 25-OH Total 38.6 ng/mL (>30)
[2024-12-07 14:15] LABS: Thyroid Peroxidase Antibodies 1 IU/mL (<9)
[2024-12-08 00:13] LABS: CRP High Sensitivity 2.8 mg/L
== END 2024-12-04 11:26 | disposition home or self-care (01) ==
LOC: HO.WFDLDS 11:25
PROVIDERS: Visit Provider Nurse Practitioner Family
DX: Z00.00 Encounter for general adult medical examination without abnormal findings (principal); R59.1 Generalized enlarged lymph nodes; Z13.1 Encounter for screening for diabetes mellitus; F41.1 Generalized anxiety disorder; Z80.8 Family history of malignant neoplasm of other organs or systems; R45.89 Other symptoms and signs involving emotional state
CPT/HCPCS: 36415; 80053; 80061; 82306; 82570; 83036; 84443; 85027; 85652; 86141; 86376

== ENCOUNTER 2025-01-08 11:29 | Outpatient (AMB) ==
--- NOTE | 2025-01-08 11:39 | MHC.PC.OV ---
Vital Signs 01/08/25 11:41 Height 5 ft 3 in Weight 154 lb 8 oz BMI 27.4 BP 116/66 Blood Pressure Location Lt brachial Position Sitting Respiration 12 Pulse 82 Pulse Source Pulse Oximeter Temp 98.3 F Temp Source Oral Pulse Oximetry (%) 98 Oxygen Delivery Method Room Air Intake Visit Reasons: reval of lymphnodes Intake Note: follow up Swimming Teacher Required: No Allergies No Known Allergies [No Known Allergies*] Allergy (Verified 01/08/25 11:54) Medication List - Last Reconciled 01/08/25 by NUNU Barbosa No Known Home Meds Tobacco use date assessed: 01/08/25 Dental Screening Dental Screen Date: 01/08/25 Did you have a dental visit in the last 12 months?: Yes Did you have a dental problem in the last 6 months where you did not have access to dental care?: No Was dental information given to patient?: Patient has dentist HPI HPI Comments History of Present Illness Details The patient is a 24-year-old female presenting with concerns regarding lymphadenopathy. The initial presentation involved awareness of lymph node enlargement on the left side following a prior viral illness. Associated symptoms such as fever, chills, swallowing difficulties, or auditory issues have been absent since the onset of lymphadenopathy. Laboratory investigations were previously conducted with no abnormal findings, indicating no current infectious or malignant processes based on normal CBC, kidney function, liver function, inflammatory markers, cholesterol levels, vitamin D, thyroid function, and thyroid antibodies. The patient expressed concerns regarding a family history of thyroid cancer and the need to rule out associated risks as part of consideration for potential bone marrow donation. Imaging modalities were discussed, with preference given to performing an ultrasound due to less radiation exposure compared to a CAT scan. An understanding was reached to pursue an ultrasound initially unless characteristics were suggestive of further imaging. Additionally, the patient recalled experiencing a severe sunburn during a visit to [place], which left residual skin changes despite cessation of symptoms. Dermatological concerns were discussed, factoring potential genetic predispositions and cumulative skin damage effects. The patient expressed a desire to follow up with dermatology for comprehensive skin evaluation, notwithstanding prior reassurance of benign sun-related skin changes. 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 - Functional Status: Patient reported physical acclimatization to the ship environment without ongoing adverse effects. - Upcoming Travel: Plans to resume travel at the end of January or beginning of March. - Care Coordination: Mention of potential bone marrow donation process impacting travel schedule. General: Well developed, well nourished, in no acute distress. Appears stated age. Head: Normocephalic, atraumatic. Eyes: Pupils are equal, round and reactive to light and accommodation. Conjunctivae are clear. Vision grossly normal. Ears: TMs clear AU, EACS WNL Nose: Patent, scant yellow d/c w/o sinus tenderness . Mouth: There are no ulcers or lesions noted. No inflammation, no post nasal drip, no plaques nor exudates. Neck: Supple,no thyromegaly or tenderness. There are palpable soft anterior cervical lymphnodes bilat more prominent on the L, nontender; there is also shotty adenopathy along manible bilat, again more on L Left anterior chest proximal to axilla is a flesh colored slightly raised skin lesion; 1st knuckle right hand is a pale/beltran freckle like area Results - Labs: Complete Blood Count (CBC) normal, kidney panel normal, liver panel normal, zero signs of infection or malignancy. - Thyroid Panel: Normal thyroid-specific markers and thyroid antibodies negative. Discussion Notes I discussed the benign nature of the patient's lymphadenopathy given the complete resolution of prior illness, consistent lab findings, and absence of worrisome symptoms. We mutually decided to conduct an urgent ultrasound of the cervical lymph nodes and will reassess the need for a CAT scan depending on these results. Regarding the patient's sunburn history and residual skin landry, I recommended a dermatology referral for thorough skin assessment and clarified its potential non-significance. Future follow-up is contingent on ultrasound findings; if negative, no further action is necessary unless new symptoms arise. As for dermatological concerns, comprehensive evaluation and appropriate documentation will be carried out by the referred specialist. The patient was encouraged to maintain regular monitoring intervals and report any notable changes promptly. Patient Instructions - Proceed to receive an urgent ultrasound of the neck. - Call [facility] for an appointment when convenient. - Monitor for any new symptoms and notify my office promptly. - Avoid prolonged sun exposure to prevent further skin damage. FU w ortho as scheduled Plan To address the lymphadenopathy, the plan includes conducting an urgent ultrasound of the neck to determine the characteristics of the lymph nodes. If the ultrasound results report benign features, no additional imaging will be required unless future symptoms warrant it. In the event of abnormal findings, a CAT scan may be considered to provide further insight. Additionally, the history of severe sunburn with ongoing skin changes will necessitate a dermatological evaluation to exclude any potential progression to skin malignancy or chronic damage. Referral to dermatology was discussed, agreed upon, and initiated for management of these dermatological concerns. We will follow up based on dermatology findings and any potential changes in the patient's lymphadenopathy status post-ultrasound evaluation. Recommendations for preventative care include continued avoidance of excessive sun exposure and the use of protective sunscreen. The patient will maintain regular follow-up intervals to monitor health status and address any emergent concerns effectively. Patient was informed and verbally consented to the use of an ambient scribe for clinic note documentation during this visit. Total time spent caring for the patient today was 30 minutes. This includes time spent before the visit reviewing the chart, time spent during the visit, and time spent after the visit on documentation, reviewing laboratory results, diagnostic imaging, medications, performing a medically necessary evaluation, counseling on diagnoses, care coordination, ordering appropriate tests, ordering appropriate medications, review of tests performed by other providers, reporting test results with the patient, communication with other healthcare providers. [facility], [facility] Medical History (Updated 01/08/25 @ 12:00 by Larisa Nichols [facility]) Fracture of second metacarpal bone Fracture of second metacarpal bone of left hand Hand fracture, left Spinal compression fracture Spinal fracture of T12 vertebra Surgical History (Updated 12/04/24 @ 10:20 by Tyrone King MA) No pertinent past surgical history Family History Father Mental health disorder Paternal Grandfather Cancer Paternal Grandmother Cancer Maternal Grandmother Cancer Diabetes Brother Asthma Mother Thyroid disease Social History (Updated 12/04/24 @ 10:17 by Tyrone King MA) Household Members: Family Both parents involved: No Caregiver staying overnight: No Housing: House Are you a primary resident care manager to a significant other at home: No Do you presently have visiting nurse or other home services: No 75 years or older and lives alone: No Alcohol intake: current Alcohol intake frequency: a few times a month Patient Tobacco Use Status: Never used Tobacco e-Cigarette/Vaping Use: Never Used Second Hand Smoke Exposure: No service: No Current occupational status: employed 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 1. Little interest or pleasure in doing things: not at all 2. Feeling down, depressed, or hopeless: not at all 3. Trouble falling or staying asleep, or sleeping too much: not at all 4. Feeling tired or having little energy: not at all 5. Poor appetite or overeating: not at all 6. Feeling bad about yourself - or that you are a failure or have let yourself or your family down: not at all 7. Trouble concentrating on things, such as reading the newspaper or watching television: not at all 8. Moving or speaking so slowly that other people could have noticed. Or the opposite - being so fidgety or restless that you have been moving around a lot more than usual: not at all 9. Thoughts that you would be better off or of hurting yourself in some way: not at all Total score: 0 Depression Screening Interpretation: Negative Depression Screening Done: Yes 07793 - PHQ-9 Billing: Patient declined-do not bill Source: Developed by Drs. Jimbo Child, Cynthia Mcguire, Demetrio Mcmanus and colleagues, with an educational catrachito from [employer]. Thrive Questionnaire Date Thrive assessed: 01/08/25 I am a: Patient What is your living situation today?: I have a steady place to live Within the past 12 months, did the food you bought not last and you didn't have the money to get more?: Never true Within the past 12 months, did you worry whether your food would run out before you got money to buy more?: Never true Do you have trouble paying for medicines?: No Do you have trouble getting transportation to medical appointments?: No Do you have trouble paying your heating and electricity bill?: No Do you have trouble taking care of your child, family member or friend?: No Do you have trouble with day-to-day activities such as bathing, preparing meals, shopping, managing finances, etc.?: No Are you currently unemployed and looking for a job?: No Are you interested in more education?: No Please select the resources that you would like help with: None Currently or been in a relationship where the following occur: No concerns reported THRIVE Score: 0 AUDIT C Alcohol Use Questionnaire (AUDIT-C) 1. How often do you have a drink containing alcohol?: Never 3. How often do you have six or more drinks on one occasion?: Never Total Score: 0 Score Reviewed/Action Taken: Yes ABA-7 AMB Questionnaire ABA-7 Date ABA - 7 assessed: 01/08/25 Feeling nervous, anxious, or on edge: 0 = Not at all Not being able to stop or control worryin = Not at all Worrying too much about different things: 0 = Not at all Trouble relaxin = Not at all Being so restless that it is hard to sit still: 0 = Not at all Becoming easily annoyed or irritable: 0 = Not at all Feeling afraid as if something awful might happen: 0 = Not at all Total ABA-7 score (0-4 normal; 5-9 mild; 10-14 moderate; 15-21 severe): 0 Source: Developed by Drs. Jimbo Child, Cynthia Mcguire, Demetrio Mcmanus and colleagues, with an educational catrachito from [employer]. ABA-7 Assessment Billing ABA-7 Assessment Tool: ABA-7 Assessment 88588 Physical exam (Primary Care) Vital Signs: Last Vital Signs Temp 98.3 F 01/08/25 11:41 Pulse 82 01/08/25 11:41 Resp 12 01/08/25 11:41 BP 116/66 01/08/25 11:41 Pulse Ox 98 01/08/25 11:41 Oxygen Delivery Method Room Air 01/08/25 11:41 BMI result Body Mass Index 27.4 Tobacco/Smoking Status: Tobacco use Status Tobacco use date assessed 01/08/25 01/08/25 11:43 Patient Tobacco Use Status Never used Tobacco 01/08/25 11:43 e-Cigarette/Vaping Use Never Used 01/08/25 11:43 Depression Screening Interpretation: Negative Thrive Assessment: Date of Thrive Assessment Date Thrive assessed 01/08/25 01/08/25 11:43 Currently or been in a relationship where the following occur: No concerns reported Coding Level of Care Code Est Pt Level 4 (91283) Complex EM visit Add On G2211 Diagnoses Lymphadenopathy R59.1 Skin lesion L98.9 Injury of quadriceps muscle S76.109A Additional Codes ABA-7 Assessment Billing - ABA-7 Assessment Tool: ABA-7 Assessment 64986 ([id number]) Assessment & Plan Assessment & Plan (1) Lymphadenopathy: Code(s): R59.1 - Generalized enlarged lymph nodes Category: Medical (2) Skin lesion: Comment: left chest/axilla Right first knuckle Code(s): L98.9 - Disorder of the skin and subcutaneous tissue, unspecified Category: Medical (3) Injury of quadriceps muscle: Code(s): S76.109A - Unspecified injury of unspecified quadriceps muscle, fascia and tendon, initial encounter Category: Medical Plan . Orders: Orders US soft tiss head and/or neck Today R59.1 - Generalized enlarged lymph nodes Referrals Dermatology Referral L98.9 - Disorder of the skin and subcutaneous tissue, unspecified
== END 2025-01-08 15:31 | disposition home or self-care (01) ==

== ENCOUNTER → 2025-01-08 11:29 | Outpatient (BNVA) | payer BC, SELFPAY | PROVIDERS: PCP Nurse Practitioner Family; Visit Provider Nurse Practitioner Family | DX: R59.1 Generalized enlarged lymph nodes (principal); L98.9 Disorder of the skin and subcutaneous tissue, unspecified; S76.109A Unspecified injury of unspecified quadriceps muscle, fascia and tendon, initial encounter | CPT/HCPCS: 96127 ==

== ENCOUNTER 2025-01-14 13:34 | Outpatient (REF) | payer BC, SELFPAY ==
--- NOTE | ~2025-01-14 | US_ITS ---
CLINICAL HISTORY: R59.1 - Generalized enlarged lymph nodes Examination: Limited soft tissue ultrasound, left neck Indication: Adenopathy Comparison: None. Findings: Several small and a few borderline lymph nodes are present along the level 1, 2 and 3 stations. The largest level 1 node is 1.2 x 0.3 x 0.9 cm. The largest level 2 node is 1.7 x 0.6 x 1.3 cm and the largest level 3 node is 2.1 x 0.5 x 1.2 cm. Impression: Several small and a few borderline lymph nodes are present, likely reactive. Clinical follow-up could be considered to ensure resolution. This document has been electronically signed by: David Shore MD on 01/15/2025 06:40:10
--- OUTSIDE RECORDS SUMMARY | 2025-01-14 13:44 | XMS_ITS | Encounter Summary ---
Author Organization [facility] Address [address] [place] [id number] Phone Care Team Providers Care Sewer Pipe Press Operator Name Role Phone Jasmyn Banda MD Primary Care Provider [phone] Encounter Details Date Type Department Care Team (Late st Contact Info) Description 07/03/2017 [place]ation [facility] [facility] [address] [place] [address] Family Medicine, Physician [address] [place], [place] [address] Social History Tobacco Use Types Packs/Day Years Used Date Smoking Tobacco: Never Assessed Comments Unknown Sex and Gender Information Value Date Recorded Sex Assigned at Not on file Legal Sex Female 3:07 PM EDT Gender Identity Female 05/17/2022 4:13 PM EDT Sexual Orientation Straight 12/12/2021 8: 51 AM EST documented as of this encounter Plan of Treatment Not on file documented as of this encounter Visit Diagnoses Not on filedocumented in this encounter Care Teams Sewer Pipe Press Operator Relationship Specialty Start Date End Date Jasmyn Banda MD [address] [place] [id number] PCP - General Pediatrics 02/01/23 09/22/24 documented as of this encounter
--- OUTSIDE RECORDS SUMMARY | 2025-01-14 13:44 | XMS_ITS | Encounter Summary ---
Author Organization [facility] Address [address] [place] [id number] Phone Care Team Providers Care Events Solutions Consultant Name Role Phone Jasmyn Banda MD Primary Care Provider [phone] Encounter Details Date Type Department Care Team (Late st Contact Info) Description 05/01/2017 [place]ation [facility] [place] [address] [place] [address] Family Medicine, Physician [address] [place], [place] [address] Social History Tobacco Use Types Packs/Day Years [...] on filedocumented in this encounter Care Teams Events Solutions Consultant Relationship Specialty Start Date End Date Jasmyn Banda MD [address] [place] [id number] PCP - General Pediatrics 02/01/23 09/22/24 documented as of this encounter
--- OUTSIDE RECORDS SUMMARY | 2025-01-14 13:44 | XMS_ITS | Patient Health Record ---
Author Organization [facility] Address [address] [facility] [address] [place] [address] Care Team Providers Care Dealership Manager Name Role Phone TESSY CORTES Primary Care Provider TESSY Dunn Unavailable [phone] Allergies No Known Allergies Reason For Referral No Information Plan Of Treatment No Information Insurance Providers Payer Name Payer Address Payer Phone Subscriber Number Group Number Insured Name Patient Relationship to Insured Coverage Start Date Coverage End Date [facility] [address] [place] [id number] ANITA PEREZ Self - patient is the insured Medical (General) History Medical History History ICD Code back pain
--- OUTSIDE RECORDS SUMMARY | 2025-01-14 13:44 | XMS_ITS | Encounter Summary ---
Author Organization [facility] Address [address] [place] [address] Phone Care Team Providers Care Auto Body Man Name Role Phone Jasmyn Banda MD Primary Care Provider [phone] Reason for Visit * Reason Comments Med Refill Encounter Details Date Type Department Care Team (Late st Contact Info) Description 06/30/2019 Refill [facility] Pediatrics - [address] [id number] Jhoana Morton MD Acne vulgaris Social History Tobacco Use Types Packs/Day Years Used Date Smoking Tobacco: Never Smokeless Tobacco: Never Alcohol Use Standard Drinks/Week Comments No 0 (1 standard drink = 0.6 oz pur e alcohol) Comments Unknown Sex and Gender Information Value Date Recorded Sex Assigned at Not on file Legal Sex Female 3:07 PM EDT Gender Identity Female 05/17/2022 4:13 PM EDT Sexual Orientation Straight 12/12/2021 8: 51 AM EST documented as of this encounter Miscellaneous Notes * Telephone Encounter - Stephanie Colorado LPN - 07/07/2019 8:09 AM EDT Spoke with pt and she is taking the Ortho-Cyclen * Telephone Encounter - Stephanie Colorado LPN - 07/06/2019 11:05 AM EDT LM on VM to callback. * Telephone Encounter - Stephanie Colorado LPN - 07/04/2019 11:16 AM EDT Attempted to call - VM is full unable to leave a message. * Telephone Encounter - Khalida Guan MD - 07/04/2019 10:27 AM EDT Please clarify which medication this patient is taking. Was prescribed ortho cyclin a few days ago by Kajal - does she need a new script or is she all set? documented in this encounter Plan of Treatment Not on file documented as of this encounter Visit Diagnoses Diagnosis Acne vulgaris Other acne documented in this encounter Care Teams Auto Body Man Relationship Specialty Start Date End Date Jasmyn Banda MD [address] [place] [address] PCP - General Pediatrics 02/01/23 09/22/24 documented as of this encounter
--- OUTSIDE RECORDS SUMMARY | 2025-01-14 13:44 | XMS_ITS | Encounter Summary ---
Author Organization [facility] Address [address] [place] [address] Phone Care Team Providers Care Audio Visual Arts Director Name Role Phone Jasmyn Banda MD Primary Care Provider [phone] Encounter Details Date Type Department Care Team (Late st Contact Info) Description 01/23/2017 Documentation [facility] [place] [address] [place] [address] Family Medicine, Physician [address] [place], [place] [id number] Social History Tobacco Use Types Packs/Day Years [...] on filedocumented in this encounter Care Teams Audio Visual Arts Director Relationship Specialty Start Date End Date Jasmyn Banda MD [address] [place] [address] PCP - General Pediatrics 02/01/23 09/22/24 documented as of this encounter
--- OUTSIDE RECORDS SUMMARY | 2025-01-14 13:44 | XMS_ITS | Encounter Summary ---
Author Organization [facility] Address [address] [place] [address] Phone Care Team Providers Care Geosciences Professor Name Role Phone Jasmyn Banda MD Primary Care Provider [phone] Encounter Details Date Type Department Care Team (Late st Contact Info) Description 03/04/2017 Documentation [facility] [place] [address] [place] [address] Family Medicine, Physician [address] [place], [place] [phone] Social History Tobacco Use Types Packs/Day Years [...] on filedocumented in this encounter Care Teams Geosciences Professor Relationship Specialty Start Date End Date Jasmyn Banda MD [address] [place] [address] PCP - General Pediatrics 02/01/23 09/22/24 documented as of this encounter
--- OUTSIDE RECORDS SUMMARY | 2025-01-14 13:44 | XMS_ITS | Encounter Summary ---
Author Organization [facility] Address [address] [place] [address] Phone Care Team Providers Care Caregivers Homecare Name Role Phone Jasmyn Banda MD Primary Care Provider [phone] Encounter Details Date Type Department Care Team (Late st Contact Info) Description 07/18/2017 Documentation [facility] [place] [address] [place] [address] Family Medicine, Physician [address] [place], [place] 0[address] Social History Tobacco Use Types Packs/Day Years [...] on filedocumented in this encounter Care Teams Caregivers Homecare Relationship Specialty Start Date End Date Jasmyn Banda MD [address] [place] [address] PCP - General Pediatrics 02/01/23 09/22/24 documented as of this encounter
--- OUTSIDE RECORDS SUMMARY | 2025-01-14 13:44 | XMS_ITS | Clinical Summary ---
Author Organization [facility] Address [address] [place] [address] Phone Care Team Providers Care Spooler Operator Name Role Phone Unavailable Primary Care Provider Unavailabl e Allergies No known active allergies Medications IUD'S IU by Intrauterine route. Active tretinoin (Retin-A) 0.025 % creamIndication s:Acne vulgaris Apply 1 application topically nightly. Apply sparingly. Use sun protection as needed. 45 g 3 2 Active cetirizine 10 MG tablet Take 1 tablet by mouth as needed in the morning. 2 Active Active Problems Problem Noted Date Diagnosed Date Concussion with no loss of consciousness 022 Overview (04/20/2022): Did not rest. 3 wks out still has fogginess. Assessment & Plan (04/20/2022 2:07 PM EDT): Try to note what your morning baseline is and if you notice it worsening at any point take a break until you are back at baseline, then continue on. Maybe watch out for up and down visual tracking. Recheck if not improving in a week of taking breaks. Acne vulgaris 12/12/2021 Overview (09/13/2022): 02/12/22: worsened after change from OCP to IUD, despite the benzaclin gel. Clearly a hormonal component, so added spironolactone as well as tretinoin. 05/2022: increased spironolactone to 75 mg for continued mod acne on cheeks. 09/2022: much improved. Ran out of the [place]ol[place] a few weeks ago and is trying without it. Still using benzaclin and tretinoin. Cheeks clear; sl outbreaks on chin and glabella. Assessment & Plan (05/21/2022 6:07 PM EDT): Much improved with 50 mg spironolactone plus topical Benza/clin gel and tretinoin, but not resolved. No SE on spironolactone> increased to 75 mg qd. Assessment & Plan (12/12/2021 8:55 AM EST): Mild to moderate over forehead, no cysts or significant scarring. Some improvement on clindagel in the past, will start benzoclin nightly, recheck in 2-3 months. History of COVID-19 04/04/2021 Overview (04/04/2021): 03/2021, mild symptoms Assessment & Plan (12/12/2021 8:45 AM EST): Fully recovered, no persistent symptoms, no issues with exercise. Positive depression screening 05/13/2018 Dysmenorrhea 05/13/2018 Overview (05/13/2018): painful and irregular - advised to return next week to discuss this more indepth and to come up with a treatment plan. Assessment & Plan (12/12/2021 8:43 AM EST): No periods with IUD in place Chronic low back pain without sciatica 8 Assessment & Plan (12/12/2021 8:44 AM EST): Still bothersome but improved with chiropractic work. Resolved Problems Problem Noted Date Diagnosed Date Resolved Date Irregular menses 06/06/2018 12/12/2021 Overview (08/21/2018): Started on ortho cyclen Nl labs Resolved on OCPs Immunizations Immunization Administration Dates Next Due DTaP 09/11/2005, 3,03/11/2002,01/09,2001 HPV 07/26/2015,01/20/2015 HPV Vaccine 9 Valent 10/30/2014 Hep A, ped/adol 05/13/2018,10/10/2016 Hep B, ped/adol 06/24/2002,2001,2001 HiB 09/09/2002,03/11/2002,01/09/2002 Hib (PRP-T) 2001 IPV 09/12/2006, 2,01/09/2002,11/10 Influenza, injectable, quadrivalent 07/26/2015,1 12/30/2013,09/23/2013 Influenza, injectable, quadr ivalent, preservative free 12/12/2021,11/04/2019,08/21/2018,09/25,10/10/2016 MMR 09/12/2006,12/09/2002 Meningococcal Conj (Menactra) MCV4P 05/13/2018,1 Pneumococcal Conjugate 04/28/2003,2001,01/09/2002,11/10 Tdap 10/01/2012 Varicella 08/01/2007,09/09/2002 Family History Medical History Relation Name Comments Learning disabilities Maternal Grandfather Cancer Maternal Grandmother Diabetes type I Maternal Grandmother ADD / ADHD Mother Jinna Diabetes Mother Jinna Learning disabilities Mother Jinna ADD / ADHD Mother's Brother Learning disabilities Mother's Brother Cancer Paternal Grandfather Cancer Paternal Grandmother Relation Name Status Comments Brother Brother: Asthma Father Holland Alive Father: Alive a nd well Maternal Grandfather Materna l grandfather: High cholesterol , Migraines Maternal Grandmother Materna l grandmother: Obesity Mother Jinna Alive Mother: Alive a nd well Mother's Brother Paternal Grandfather Paternal Grandmother Social History Tobacco Use Types Packs/Day Years Used Date Smoking Tobacco: Never Smokeless Tobacco: Never Alcohol Use Standard Drinks/Week Comments No 0 (1 standard drink = 0.6 oz pur e alcohol) Hunger/Food Answer Date Recorded In the last 12 months, did y ou or your family ever eat less than you felt you should because there wasn't enough money for food? No 12/12/2021 Stable Housing Answer Date Recorded Are you worried that in the next 2 months you may not have stable housing? No 12/12/2021 Transportation Concerns Answer Date Rec orded In the last 12 months, have you or your family ever had to go without healthcare because you didn't have a way to get there? No 12/12/2021 Hazards in Home Answer Date Recorded Think about the place you li ve. Do you have problems with any of the following? Pests (mice or roaches), mold, no/not working smoke detectors, water leaks, no window guards. No 2021 Financing Utilities Answer Date Recorde d In the last 12 months, has t he electric, gas, oil, or water company threatened to shut off your services in your home? No 12/12/2021 Safety at Home Answer Date Recorded Are you or your family worried about feeling saf e in your home? No 12/12/2021 Outside Support Answer Date Recorded Do you feel that you need mo re support from other people or programs to help you care for yourself or your family? No 12/12/2021 Understanding Health Concerns Answer Da te Recorded Do you need help understandi ng your or your child's healthcare needs (diagnosis, medications, plan, etc.)? No 12/12/2021 Financing Health Concerns Answer Date R ecorded In the last 12 months, was t here a time when your child needed to see a doctor or get medications or supplies but could not because of cost? No 12/12/2021 Missing School or Work Answer Date Dariel rded Did you or your child miss s chool or work because of a health problem that could have been avoided? No 12/12/2021 Comments No Sex and Gender Information Value Date Recorded Sex Assigned at Not on file Legal Sex Female 3:07 PM EDT Gender Identity Female 05/17/2022 4:13 PM EDT Sexual Orientation Straight 12/12/2021 8: 51 AM EST Last Filed Vital Signs Vital Sign Reading Time Taken Comments Blood Pressure 90/65 04/20/2022 1:39 PM EDT Pulse 65 12/12/2021 8:22 AM EST Temperature 36.9 ??C (98.4 ??F) 04/20/2022 1:39 PM ED T Respiratory Rate - - Oxygen Saturation 98% 04/21/2021 4:56 PM EDT Inhaled Oxygen Concentration - - Weight 62 kg (136 lb 9.6 oz) 12/12/2021 8:22 AM EST Height 158.8 cm (5' 2.5 ) 12/12/2021 8:22 AM EST Body Mass Index 24.59 12/12/2021 8:22 AM EST Plan of Treatment Health Maintenance Due Date Last Done Comments Men B Vaccine (1 of 2 - Standard) 2017 DTaP,Tdap,and Td Vaccines (7 - Td or Tdap) 10/01/2022 10/01/2012, 09/11/2005, 12/09/2002, Additional history exists Influenza Vaccines (#1) 2024 12/12/19, 11/04/2019, 08/21/2018, Additional history exists COVID-19 Vaccine (2023-2 5 season) 2024 12/08/2021, 07/26/2021, 07/04/2021 Hepatitis B Vaccines Completed 06/24/2002, 2001, 2001 HIB Vaccines Completed 09/09/2002, 03/02, 01/09/2002, Additional history exists Pneumococcal Vaccine Completed 04/28/2003, 03/11/2002, 01/09/2002, Additional history exists IPV Vaccines Completed 09/12/2006, 08/2002, 01/09/2002, Additional history exists MMR Vaccines Completed 09/12/2006, 12/09/2002 Varicella Vaccines Completed 08/01/2007, 09/09/2002 HPV Vaccines Completed 07/26/2015, 01/02, 10/30/2014 Hepatitis A Vaccines Completed 05/13/2018, 10/10/20 16 Meningococcal Vaccine Completed 05/13/2018, 013 Procedures * Due to [place] Rad[employer] law, this organization might not be sharing sensitive test results. Procedure Name Priority Date/Time Associated Diagnosis Comments CHLAMYDIA TRACHOMATIS, AMPLIFIED Routine 11/04/2019 11:59 AM EST Screening for chlamydial disease from Last 3 Months or Most Recently Relevant to Health Maintenance Results * Due to [place] Rad[employer] law, this organization might not be sharing sensitive test results. * Chlamydia trachomatis, Amplified (11/04/2019 11:59 AM EST) Chlamydia trachomatis RNA, TMA Not Detected Not Detected 11/05/2019 9:22 AM EST [facility] Urine 11/04/2019 11:5 9 AM EST 11/04/2019 1:54 PM EST us Jaimee Khalil VP OF DIGITAL MARKETING LAB BLOOD ORDERABLES Final Re sult [facility] from Last 3 Months or Most Recently Relevant to Health Maintenance [place] [address] [address] [address] HEALTHCARE
--- OUTSIDE RECORDS SUMMARY | 2025-01-14 13:44 | XMS_ITS | Encounter Summary ---
Author Organization [facility] Address [address] [place] [address] Phone Care Team Providers Care Revenue Integrity Analyst Name Role Phone Jasmyn Banda MD Primary Care Provider [phone] Encounter Details Date Type Department Care Team (Late st Contact Info) Description 07/18/2017 Conversion Encounter [facility] - [address] [address] Social History Tobacco Use Types Packs/Day Years [...] on filedocumented in this encounter Care Teams Revenue Integrity Analyst Relationship Specialty Start Date End Date Jasmyn Banda MD [address] [place] [address] [address] [place] [address] PCP - General Pediatrics 02/01/23 09/22/24 documented as of this encounter
--- OUTSIDE RECORDS SUMMARY | 2025-01-14 13:44 | XMS_ITS | Encounter Summary ---
Author Organization [facility] Address [address] [place] [address] Phone Care Team Providers Care Loan Interviewer Name Role Phone Jasmyn Banda MD Primary Care Provider [phone] Encounter Details Date Type Department Care Team (Late st Contact Info) Description 04/01/2017 Documentation [facility] [place] [address] [place] [address] Family Medicine, Physician [address] [place], [place] [phone] Social History Tobacco Use Types Packs/Day Years [...] on filedocumented in this encounter Care Teams Loan Interviewer Relationship Specialty Start Date End Date Jasmyn Banda MD [address] [place] [id number] PCP - General Pediatrics 02/01/23 09/22/24 documented as of this encounter
--- OUTSIDE RECORDS SUMMARY | 2025-01-14 13:44 | XMS_ITS | Encounter Summary ---
Author Organization [facility] Address [address] [place] [phone] Phone Care Team Providers Care Investment Representative Name Role Phone Jasmyn Banda MD Primary Care Provider [phone] Reason for Visit * Reason Onset Date Comments Mailed Adult Transition Packet 22+ and over 08/03 Encounter Details Date Type Department Care Team (Late st Contact Info) Description 08/21/2024 Telephone [facility] Pediatrics - [place] [address] [place] [address] Jasmyn Banda MD [address] [facility] [address] [place] [address] Mailed Adult Transition Packet 22+ and over Social History Tobacco Use Types Packs/Day Years [...] Miscellaneous Notes * Telephone Encounter - Stephanie Aguilar - 08/21/2024 10:18 AM EDT Sending Out the Adult Transition Packet for 22+ and over. Will follow up in 6 months from packet being sent out. documented in this encounter Plan of Treatment Not on file documented as of this encounter Visit Diagnoses Not on filedocumented in this encounter Care Teams Investment Representative Relationship Specialty Start Date End Date Jasmyn Banda MD [address] [place] [address] PCP - General Pediatrics 02/01/23 09/22/24 documented as of this encounter
--- OUTSIDE RECORDS SUMMARY | 2025-01-14 13:44 | XMS_ITS | Encounter Summary ---
Author Organization [facility] Address [address] [place] [address] Phone Care Team Providers Care Work Measurement Engineer Name Role Phone Jasmyn Banda MD Primary Care Provider [phone] Encounter Details Date Type Department Care Team (Late st Contact Info) Description 07/22/[address] [facility] [place] [address] [place] [address] Family Medicine, Physician [address] [place], [place] [phone] Social History Tobacco Use Types Packs/Day Years [...] on filedocumented in this encounter Care Teams Work Measurement Engineer Relationship Specialty Start Date End Date Jasmyn Banda MD [address] [place] [address] PCP - General Pediatrics 02/01/23 09/22/24 documented as of this encounter
== END 2025-01-14 13:35 | disposition home or self-care (01) ==
LOC: HO.US 13:34
PROVIDERS: PCP Nurse Practitioner Family; Visit Provider Nurse Practitioner Family
DX: R59.1 Generalized enlarged lymph nodes (principal)
CPT/HCPCS: 76536

== ENCOUNTER → 2025-01-14 13:38 | Outpatient (BNV) | payer BC, SELFPAY | PROVIDERS: PCP Nurse Practitioner Family; Visit Provider Radiology Vascular & Interventional Radiology | DX: R59.1 Generalized enlarged lymph nodes (principal) | CPT/HCPCS: 76536 ==

== ENCOUNTER 2025-01-28 10:13 | Outpatient (AMB) | payer BC, SELFPAY ==
[2025-01-28 10:18] VITALS: BMI 26.6
--- NOTE | 2025-01-28 10:18 | A.OFFVIS_ITS ---
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 States she has 2 dents on her quadricep that is causing weakness. Its affecting her while at the gym. This started while in High school 4 years ago. She believes she pulled a muscle, never seek medical advise. Denies numbness or tingling in toes. She has not tried P.T yet. Patient referred by her PCP Larisa Hines Allergies No Known Allergies [No Known Allergies*] Allergy (Verified 01/28/25 10:22) Medication List - Last Reconciled 01/28/25 by Jacklyn Reyna MD No Known Home Meds HPI Comments Details: She follows Orthopedics, status post left hand fx, DOI 10/20/23. Reviewed notes from PCP, they tried to obtain MRI quadriceps but denied by insurance. 3 compression fractures around age 16, T12, L4 and another, from gymn astics/dance. Treated with rest and PT. Not sure about severity. It was a chiropractor who ordered xray and diagnosed her. Left pulled muscle injury 4 years ago, in HS, possibly during swimming. Noted dent on left proxima/mid quadriceps one year ago. But no change in strength. Only maybe slightly weaker when she squats. Nowadays, no pain. Feels numb on that area. Lack of strength. No knee buckling or falls. Residual back pain from injuries, when she sits for a long time, non radicular, and sees chiropractor. No PT yet. [facility] Medical History (Updated 01/28/25 @ 10:50 by Jacklyn Reyna MD) Fracture of second metacarpal bone of left hand Fracture of second metacarpal bone Hand fracture, left Spinal compression fracture Spinal fracture of T12 vertebra Surgical History No pertinent past surgical history Family History Father Mental health disorder Paternal Grandfather Cancer Paternal Grandmother Cancer Maternal Grandmother Cancer Diabetes Brother Asthma Mother Thyroid disease Social History (Updated 01/28/25 @ 10:23 by ROSLYN Lu) Household Members: Family Both parents involved: No Caregiver staying overnight: No Housing: House Are you a primary skin care instructor to a significant other at home: No Do you presently have visiting nurse or other home services: No 75 years or older and lives alone: No Alcohol intake: current Alcohol intake frequency: a few times a month Patient Tobacco Use Status: Never used Tobacco e-Cigarette/Vaping Use: Never Used Second Hand Smoke Exposure: No service: No Current occupational status: employed 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 Patient was appropriately conversant and oriented. Good historian. MSK: No specific abnormalities found on inspection of the spine and all extremities. No pain with palpation over the lumbar area. Lumbar ROM was full. Bilateral hip, knee and ankle ROM WNL. No ligamentous laxity or crepitance. No increased effusion. Straight-leg raising test negative. FABERE test negative. There is a did not on left mid quadriceps muscle, possibly 1 in, but would not describe it as atrophied. There is no weakness on quadriceps or hamstrings. No allodynia. No hypersensitivity. No numbness to touch. Strength is 5/5 in all muscle groups tested. No increased tone noted. Neurological: Neurologic examination of the upper and lower extremities was nonfocal with intact sensation, muscle stretch reflexes and without focal motor deficits . Babinski was down going bilaterally. Clonus was negative. Gait is non-antalgic without loss of balance. Patient was able to perform heel walk and toe walk. 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 It is not causing weakness or pain. There are no signs of CRPS or nerve injury. No numbness. She is pretty active. We discussed treatment options. Since I do not see any red flags or concerning signs on exam today, we agreed that she will continue with exercises at home to further strengthen quadriceps and lower body. Gave her instructions. If it gets worse in size (more atrophy) on next visit in 3 months, then we will pursue further imaging such as MRI. Assessment and plan discussed with patient, and patient was agreeable. All questions were answered thoroughly. Jacklyn Reyna MD, ANTONELLA Board Certified, [place] [employer] and [employer] (ABPMR) Board Certified, [place] [employer] Electrodiagnostic [employer] (ABEM) Coding Level of Care Code New Pt Level 3 (04547) Diagnoses Atrophy of quadriceps femoris muscle of left thigh M62.552 Injury of quadriceps muscle S76.109A
--- OUTSIDE RECORDS SUMMARY | 2025-01-28 11:51 | XMS_ITS | Encounter Summary ---
Author Organization [facility] Address [address] [place] [address] Phone Care Team Providers Care Director Learning And Development Name Role Phone Jasmyn Banda MD Primary Care Provider [phone] Encounter Details Date Type Department Care Team (Late st Contact Info) Description 07/18/2017 Documentation [facility] [place] [address] [place] [address] Family Medicine, Physician [address] [place], [place] [address] Social History Tobacco Use Types Packs/Day Years [...] on filedocumented in this encounter Care Teams Director Learning And Development Relationship Specialty Start Date End Date Jasmyn Banda MD [address] [place] [address] PCP - General Pediatrics 02/01/23 09/22/24 documented as of this encounter
--- OUTSIDE RECORDS SUMMARY | 2025-01-28 11:51 | XMS_ITS | Clinical Summary ---
Author Organization [facility] Address [address] [place] [address] Phone Care Team Providers Care Security Project Manager Name Role Phone Unavailable Primary Care Provider [...] 05/13/2018, 013 Procedures * Due to [place] [employer] law, this organization might not be sharing sensitive test results. Procedure Name Priority Date/Time Associated Diagnosis Comments CHLAMYDIA TRACHOMATIS, AMPLIFIED Routine 11/04/2019 11:59 AM EST Screening for chlamydial disease from Last 3 Months or Most Recently Relevant to Health Maintenance Results * Due to [place] [employer] law, this organization might not be sharing sensitive test results. * Chlamydia trachomatis, Amplified (11/04/2019 11:59 AM EST) Chlamydia trachomatis RNA, TMA Not Detected Not Detected 11/05/2019 9:22 AM EST [facility] Urine 11/04/2019 11:5 9 AM EST 11/04/2019 1:54 PM EST us Jaimee Khalil BUSINESS OFFICE TECHNICIAN LAB BLOOD ORDERABLES Final Re sult [facility] from Last 3 Months or Most Recently Relevant to Health Maintenance [place] [address] [place] [address] HEALTHCARE
--- OUTSIDE RECORDS SUMMARY | 2025-01-28 11:51 | XMS_ITS | Encounter Summary ---
Author Organization [facility] Address [address] [place] [address] Phone Care Team Providers Care Director Professional Services Name Role Phone Jasmyn Banda MD Primary Care Provider [phone] Encounter Details Date Type Department Care Team (Late st Contact Info) Description 07/18/2017 Conversion Encounter [facility] - [address] [address] Social History Tobacco Use Types Packs/Day Years [...] filedocumented in this encounter Care Teams Director Professional Services Relationship Specialty Start Date End Date Jasmyn Banda MD [address] [place] [address] 2 [place] [address] PCP - General Pediatrics 02/01/23 09/22/24 documented as of this encounter
--- OUTSIDE RECORDS SUMMARY | 2025-01-28 11:51 | XMS_ITS | Encounter Summary ---
Author Organization [facility] Address [address] [place] [address] Phone Care Team Providers Care Film Casting Operator Name Role Phone Jasmyn Banda MD Primary Care Provider [phone] Encounter Details Date Type Department Care Team (Late st Contact Info) Description 07/03/2017 Documentation [facility] [place] [address] [place] [address] Family Medicine, Physician [address] [place], [place] 747321 Social History Tobacco Use Types Packs/Day Years [...] on filedocumented in this encounter Care Teams Film Casting Operator Relationship Specialty Start Date End Date Jasmyn Banda MD [address] [place] [address] PCP - General Pediatrics 02/01/23 09/22/24 documented as of this encounter
--- OUTSIDE RECORDS SUMMARY | 2025-01-28 11:51 | XMS_ITS | Encounter Summary ---
Author Organization [facility] Address [address] [place] [address] Phone Care Team Providers Care Vending Enterprises Supervisor Name Role Phone Jasmyn Banda MD Primary Care Provider [phone] Encounter Details Date Type Department Care Team (Late st Contact Info) Description 07/22/2017 Documentation [facility] [place] Medicine [address] [place] [address] Family Medicine, Physician [address] [place], [place] [address] Social History Tobacco Use Types Packs/Day Years [...] on filedocumented in this encounter Care Teams [employer]ending Enterprises Supervisor Relationship Specialty Start Date End Date Jasmyn Banda MD [address] [place] [address] PCP - General Pediatrics 02/01/23 09/22/24 documented as of this encounter
--- OUTSIDE RECORDS SUMMARY | 2025-01-28 11:51 | XMS_ITS | Encounter Summary ---
Author Organization [facility] Address [address] [place] [address] Phone Care Team Providers Care Taxicab Coordinator Name Role Phone Jasmyn Banda MD Primary Care Provider [phone] Reason for Visit * Reason Comments Med Refill Encounter Details Date Type Department Care Team (Late st Contact Info) Description 06/30/2019 Refill [facility] Pediatrics - [address] [id number] Jhoana Morton MD Acne vulgaris Social History [...] acne documented in this encounter Care Teams Taxicab Coordinator Relationship Specialty Start Date End Date Jasmyn Banda MD [address] [place] [address] PCP - General Pediatrics 02/01/23 09/22/24 documented as of this encounter
--- OUTSIDE RECORDS SUMMARY | 2025-01-28 11:51 | XMS_ITS | Encounter Summary ---
Author Organization [facility] Address [address] [place] [address] Phone Care Team Providers Care Glove Turner And Former Automatic Name Role Phone Jasmyn Banda MD Primary Care Provider [phone] Encounter Details Date Type Department Care Team (Late st Contact Info) Description 05/01/2017 Documentation [facility] [place] [address] [place] [address] Family Medicine, Physician [address] [place], [place] 887191 Social History Tobacco Use Types Packs/Day Years [...] on filedocumented in this encounter Care Teams Glove Turner And Former Automatic Relationship Specialty Start Date End Date Jasmyn Banda MD [address] [place] [address] PCP - General Pediatrics 02/01/23 09/22/24 documented as of this encounter
--- OUTSIDE RECORDS SUMMARY | 2025-01-28 11:52 | XMS_ITS | Encounter Summary ---
Author Organization [facility] Address [address] [place] [address] Phone Care Team Providers Care Production Honing Machine Operator Name Role Phone Jasmyn Banda MD Primary Care Provider [phone] Encounter Details Date Type Department Care Team (Late st Contact Info) Description 03/04/2017 Documentation [facility] [place] Medicine [address] [place] [address] Family Medicine, Physician [address] [place], [place] [address] Social History Tobacco Use Types Packs/Day Years [...] on filedocumented in this encounter Care Teams Production Honing Machine Operator Relationship Specialty Start Date End Date Jasmyn Banda MD [address] [place] [address] PCP - General Pediatrics 02/01/23 09/22/24 documented as of this encounter
--- OUTSIDE RECORDS SUMMARY | 2025-01-28 11:52 | XMS_ITS | Encounter Summary ---
Author Organization [facility] Address [address] [place] [address] Phone Care Team Providers Care Roentgenology Teacher Name Role Phone Jasmyn Banda MD Primary Care Provider [phone] Encounter Details Date Type Department Care Team (Late st Contact Info) Description 04/01/2017 Documentation [facility] [place] Medicine [address] [place] [address] Family Medicine, Physician [address] [place], [place] 977241 Social History Tobacco Use Types Packs/Day Years [...] on filedocumented in this encounter Care Teams Roentgenology Teacher Relationship Specialty Start Date End Date Jasmyn Banda MD [address] [place] [address] PCP - General Pediatrics 02/01/23 09/22/24 documented as of this encounter
--- OUTSIDE RECORDS SUMMARY | 2025-01-28 11:52 | XMS_ITS | Encounter Summary ---
Author Organization [facility] Address [address] [place] [address] Phone Care Team Providers Care Medical Laboratory Scientist Name Role Phone Jasmyn Banda MD Primary Care Provider [phone] Encounter Details Date Type Department Care Team (Late st Contact Info) Description 01/23/2017 Documentation [facility] [place] [address] [place] [address] Family Medicine, Physician [address] [place], [place] 9504[address] Social History Tobacco Use Types Packs/Day Years [...] on filedocumented in this encounter Care Teams Medical Laboratory Scientist Relationship Specialty Start Date End Date Jasmyn Banda MD [address] [place] [address] PCP - General Pediatrics 02/01/23 09/22/24 documented as of this encounter
== END 2025-01-28 10:47 | disposition home or self-care (01) ==
PROVIDERS: PCP Nurse Practitioner Family; Visit Provider Physical Medicine & Rehabilitation
DX: M62.552 Muscle wasting and atrophy, not elsewhere classified, left thigh (principal); S76.109A Unspecified injury of unspecified quadriceps muscle, fascia and tendon, initial encounter
CPT/HCPCS: 99203

== ENCOUNTER → 2025-01-28 10:13 | Outpatient (BNVA) | payer BC, SELFPAY | PROVIDERS: PCP Nurse Practitioner Family; Visit Provider Physical Medicine & Rehabilitation ==

== ENCOUNTER 2025-03-15 07:48 | Outpatient (REF) | payer BC, SELFPAY ==
--- NOTE | ~2025-03-15 | CT_ITS ---
CLINICAL HISTORY: R59.1 - Generalized enlarged lymph nodes CT soft tissue neck with contrast Comparison: None Findings: The visualized intracranial contents are unremarkable. No prevertebral fluid. Epiglottis is within normal limits. Pharyngeal mucosal space and parapharyngeal fat are normal. There are multiple small lymph nodes within the neck. Lymph nodes measure up to 1 cm in short axis dimension. A BB was placed in the area of palpable concern. Underlying the BB, there is a 7 mm short axis dimension lymph node. No suspicious mass. No fluid collection. Salivary glands are unremarkable. No sialoliths. No suspicious thyroid nodules. There are 2 small nodules within the right lung measuring 5 and 4 mm in size respectively, most likely representing benign nodules. No acute fracture or dislocation. IMPRESSION: Borderline lymphadenopathy within the neck, most likely inflammatory. This document has been electronically signed by: Shey Rojas MD on 03/15/2025 15:44:04
--- OUTSIDE RECORDS SUMMARY | 2025-03-15 07:51 | XMS_ITS | Encounter Summary ---
Author Organization [facility] Address [address] [place] [address] Phone Care Team Providers Care Physician Name Role Phone Jasmyn Banda MD Primary Care Provider [phone] Encounter Details Date Type Department Care Team (Late st Contact Info) Description 05/01/2017 Documentation [facility] [place] [address] [place] [address] Family Medicine, Physician [address] [place], [place] [address] Social History Tobacco Use Types Packs/Day Years [...] on filedocumented in this encounter Care Teams Physician Relationship Specialty Start Date End Date Jasmyn Banda MD [address] [place] [address] PCP - General Pediatrics 02/01/23 09/22/24 documented as of this encounter
--- OUTSIDE RECORDS SUMMARY | 2025-03-15 07:51 | XMS_ITS | Encounter Summary ---
Author Organization [facility] Address [address] [place] [address] Phone Care Team Providers Care Textile Bag Sewer Name Role Phone Jasmyn Banda MD Primary Care Provider [phone] Encounter Details Date Type Department Care Team (Late st Contact Info) Description 01/23/[address] [facility] [place] Medicine [address] [place] [address] Family Medicine, Physician [address] [place], [place] 033381 Social History Tobacco Use Types Packs/Day Years [...] on filedocumented in this encounter Care Teams Textile Bag Sewer Relationship Specialty Start Date End Date Jasmyn Banda MD [address] [place] [address] PCP - General Pediatrics 02/01/23 09/22/24 documented as of this encounter
--- OUTSIDE RECORDS SUMMARY | 2025-03-15 07:51 | XMS_ITS | Encounter Summary ---
Author Organization [facility] Address [address] [place] [address] Phone Care Team Providers Care Scrap Kettle Tender Name Role Phone Jasmyn Banda MD Primary Care Provider [phone] Encounter Details Date Type Department Care Team (Late st Contact Info) Description 07/03/2017 Document[place] [facility] [place] [address] [place] [address] Family Medicine, Physician [address] [place], [place] 5464[address] Social History Tobacco Use Types Packs/Day Years [...] on filedocumented in this encounter Care Teams Scrap Kettle Tender Relationship Specialty Start Date End Date Jasmyn Banda MD [address] [place] [address] PCP - General Pediatrics 02/01/23 09/22/24 documented as of this encounter
--- OUTSIDE RECORDS SUMMARY | 2025-03-15 07:51 | XMS_ITS | Encounter Summary ---
Author Organization [facility] Address [address] [place] [address] Phone Care Team Providers Care Shell Reprint Operator Name Role Phone Jasmyn Banda MD Primary Care Provider [phone] Reason for Visit * Reason Comments Med Refill Encounter Details Date Type Department Care Team (Late st Contact Info) Description 06/30/2019 Refill [facility] Pediatrics - [address] [phone] Jhoana Morton MD Acne vulgaris Social History [...] acne documented in this encounter Care Teams Shell Reprint Operator Relationship Specialty Start Date End Date Jasmyn Banda MD [address] [place] [address] PCP - General Pediatrics 02/01/23 09/22/24 documented as of this encounter
--- OUTSIDE RECORDS SUMMARY | 2025-03-15 07:51 | XMS_ITS | Encounter Summary ---
Author Organization [facility] Address [address] [place] [address] Phone Care Team Providers Care Laser Engineer Name Role Phone Jasmyn Banda MD Primary Care Provider [phone] Encounter Details Date Type Department Care Team (Late st Contact Info) Description 07/18/2017 Conversion Encounter [facility] - [address] [address] Social History Tobacco Use Types Packs/Day Years [...] on filedocumented in this encounter Care Teams Laser Engineer Relationship Specialty Start Date End Date Jasmyn Banda MD [address] [place] [address] 2 [place] [address] PCP - General Pediatrics 02/01/23 09/22/24 documented as of this encounter
--- OUTSIDE RECORDS SUMMARY | 2025-03-15 07:51 | XMS_ITS | Encounter Summary ---
Author Organization [facility] Address [address] [place] [address] Phone Care Team Providers Care Government Teacher Name Role Phone Jasmyn Banda MD Primary Care Provider [phone] Encounter Details Date Type Department Care Team (Late st Contact Info) Description 07/18/2017 Documentation [facility] [place] [address] [place] [address] Family Medicine, Physician [address] [place], [place] 296121 Social History Tobacco Use Types Packs/Day Years [...] on filedocumented in this encounter Care Teams Government Teacher Relationship Specialty Start Date End Date Jasmyn Banda MD [address] [place] [address] PCP - General Pediatrics 02/01/23 09/22/24 documented as of this encounter
--- OUTSIDE RECORDS SUMMARY | 2025-03-15 07:51 | XMS_ITS | Patient Health Record ---
Author Organization [facility] Address [address] [facility] [address] [place] [address] Care Team Providers Care Cartridge Assembling Machine Adjuster Name Role Phone TESSY CORTES Primary Care Provider TESSY Dunn Unavailable [phone] Allergies No Known Allergies Reason For Referral No Information Plan Of Treatment No Information Insurance Providers Payer Name Payer Address Payer Phone Subscriber Number Group Number Insured Name Patient Relationship to Insured Coverage Start Date Coverage End Date [facility] [address] [place] [id number] ANITA PEREZ Self - patient is the insured Medical (General) History Medical History History ICD Code back pain
--- OUTSIDE RECORDS SUMMARY | 2025-03-15 07:51 | XMS_ITS | Encounter Summary ---
Author Organization [facility] Address [address] [place] [address] Phone Care Team Providers Care Integrated Logistics Programs Director Name Role Phone Jasmyn Banda MD Primary Care Provider [phone] Encounter Details Date Type Department Care Team (Late st Contact Info) Description 07/22/2017 Documentation [facility] Family Medicine [address] [place] [address] Family Medicine, Physician [address] [place], [place] [address] Social History Tobacco Use Types Packs/Day Years [...] on filedocumented in this encounter Care Teams Integrated Logistics Programs Director Relationship Specialty Start Date End Date Jasmyn Banda MD [address] [place] [address] PCP - General Pediatrics 02/01/23 09/22/24 documented as of this encounter
--- OUTSIDE RECORDS SUMMARY | 2025-03-15 07:51 | XMS_ITS | Encounter Summary ---
Author Organization [facility] Address [address] [place] [address] Phone Care Team Providers Care Cerner Analyst Name Role Phone Jasmyn Banda MD Primary Care Provider [phone] Encounter Details Date Type Department Care Team (Late st Contact Info) Description 04/01/2017 Documentation [facility] [place] [address] [place] [address] Family Medicine, Physician [address] [place], [place] [address] Social History Tobacco Use Types Packs/Day Years [...] on filedocumented in this encounter Care Teams Cerner Analyst Relationship Specialty Start Date End Date Jasmyn Banad MD [address] [place] [address] PCP - General Pediatrics 02/01/23 09/22/24 documented as of this encounter
--- OUTSIDE RECORDS SUMMARY | 2025-03-15 07:51 | XMS_ITS | Clinical Summary ---
Author Organization [facility] Address [address] [place] [address] Phone Care Team Providers Care Sausage Tier Name Role Phone Unavailable Primary Care Provider [...] Completed 05/13/2018, 013 Procedures * Due to [place] [employer] law, this organization might not be sharing sensitive test results. Procedure Name Priority Date/Time Associated Diagnosis Comments CHLAMYDIA TRACHOMATIS, AMPLIFIED Routine 11/04/2019 11:59 AM EST Screening for chlamydial disease from Last 3 Months or Most Recently Relevant to Health Maintenance Results * Due to [place] [employer] law, this organization might not be sharing sensitive test results. * Chlamydia trachomatis, Amplified (11/04/2019 11:59 AM EST) Chlamydia trachomatis RNA, TMA Not Detected Not Detected 11/05/2019 9:22 AM EST [facility] Urine 11/04/2019 11:5 9 AM EST 11/04/2019 1:54 PM EST us Jaimee Khalil TIME STAMP ASSEMBLER LAB BLOOD ORDERABLES Final Re sult [facility] from Last 3 Months or Most Recently Relevant to Health Maintenance [place] [address] [place] [address] [facility]ARE [facility] Address: [facility] [id number] [place] [id number]
--- OUTSIDE RECORDS SUMMARY | 2025-03-15 07:51 | XMS_ITS | Encounter Summary ---
Author Organization [facility] Address [address] [place] [address] Phone Care Team Providers Care Assistant County Engineer Name Role Phone Jasmyn Banda MD Primary Care Provider [phone] Encounter Details Date Type Department Care Team (Late st Contact Info) Description 03/04/2017 Documentation [facility] [place] [address] [place] [address] Family Medicine, Physician [address] [place], [place] [address] Social History Tobacco Use Types Packs/Day Years [...] on filedocumented in this encounter Care Teams Assistant County Engineer Relationship Specialty Start Date End Date Jasmyn Banda MD [address] [place] [address] PCP - General Pediatrics 02/01/23 09/22/24 documented as of this encounter
[2025-03-15] MEDS: iohexoL 350 MG/ML 75 ML INFUS..BTL 60 ML IV (08:42)
== END 2025-03-15 07:49 | disposition home or self-care (01) ==
LOC: HO.CT 07:48
PROVIDERS: PCP Nurse Practitioner Family; Visit Provider Nurse Practitioner Family
DX: R59.1 Generalized enlarged lymph nodes (principal)
CPT/HCPCS: 70491; Q9967

== ENCOUNTER → 2025-03-15 07:48 | Outpatient (BNV) | payer BC, SELFPAY | PROVIDERS: PCP Nurse Practitioner Family; Visit Provider Radiology Diagnostic Radiology | DX: R59.1 Generalized enlarged lymph nodes (principal) | CPT/HCPCS: 70491 ==

== ENCOUNTER 2025-03-17 15:48 | Outpatient (AMB) | payer BC, SELFPAY ==
--- NOTE | 2025-03-17 08:01 | MHC.PC.OV ---
Intake Visit Reasons: review imaging ct Intake Note: telehealth to review imaging Heating And Cooling Systems Engineer Required: No Allergies No Known Allergies [No Known Allergies*] Allergy (Verified 03/17/25 16:50) Medication List - Last Reconciled 03/17/25 by DEANDRA Barbosa No Known Home Meds Tobacco use date assessed: 01/08/25 Dental Screening Dental Screen Date: 01/08/25 HPI HPI Comments History of Present Illness Details Telehealth visit today to view soft tissue CT done to eval concerns regarding lymphadenopathy. The initial presentation involved awareness of lymph node enlargement on the left side following a prior viral illness. Associated symptoms such as fever, chills, swallowing difficulties, or auditory issues have been absent since the onset of lymphadenopathy. Laboratory investigations were previously conducted with no abnormal findings, indicating no current infectious or malignant processes based on normal CBC, kidney function, liver function, inflammatory markers, cholesterol levels, vitamin D, thyroid function, and thyroid antibodies. The patient expressed concerns regarding a family history of thyroid cancer and the need to rule out associated risks as part of consideration for potential bone marrow donation. Results - Labs: Complete Blood Count (CBC) normal, kidney panel normal, liver panel normal, zero signs of infection or malignancy. - Thyroid Panel: Normal thyroid-specific markers and thyroid antibodies negative. The results were reviewed w the patient. She expresses anxiety r/t her health and would like to air on the side of caution Therefore, we will refer to Pulm for the lung nodules and ENT for the cervical adenopathy. I have asked her to look into insurance coverage in [place] for ENT & send me a message on the portal CT will provide sooner avail than Ma as there is a long wait In other regards, she saw Derm, she was told of scarring and did need to have a bx done. Results are pending. She ff'd up with Dr Srivastava for her Quad. She plans to do a bone marrow donation, she is cleared to proceed w/ this as she wishes. Time spent 21 minutes [facility] Medical History (Updated 03/17/25 @ 17:00 by DEANDRA Barbosa) Fracture of second metacarpal bone Fracture of second metacarpal bone of left hand Hand fracture, left Spinal compression fracture Spinal fracture of T12 vertebra Surgical History No pertinent past surgical history Family History Father Mental health disorder Paternal Grandfather Cancer Paternal Grandmother Cancer Maternal Grandmother Cancer Diabetes Brother Asthma Mother Thyroid disease Social History (Updated 01/28/25 @ 10:23 by ROSLYN Lu) Household Members: Family Both parents involved: No Caregiver staying overnight: No Housing: House Are you a primary children's zoo caretaker to a significant other at home: No Do you presently have visiting nurse or other home services: No 75 years or older and lives alone: No Alcohol intake: current Alcohol intake frequency: a few times a month Patient Tobacco Use Status: Never used Tobacco e-Cigarette/Vaping Use: Never Used Second Hand Smoke Exposure: No service: No Current occupational status: employed 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 Jimbo Child, Cynthia Mcguire, Demetrio Mcmanus and colleagues, with an educational catrachito from [employer]. Physical exam (Primary Care) Tobacco/Smoking Status: Tobacco use Status Tobacco use date assessed 01/08/25 03/17/25 08:07 Patient Tobacco Use Status Never used Tobacco 03/17/25 08:07 e-Cigarette/Vaping Use Never Used 03/17/25 08:07 Thrive Assessment: Date of Thrive Assessment Date Thrive assessed 12/04/24 03/17/25 08:07 Telehealth Telehealth Telehealth Platform: [facility] Location of provider rendering services: practice address Location of patient: address on file Patient Identification confirmed using: Name, : Yes Telehealth method: voice only Patient verbally consented to treatment: Yes Patient verbally consented to billing insurance company: Yes Patient informed of any privacy concerns related to visit: Yes Minutes spent on Phone/Video with Pt.: 13 Coding Level of Care Code Tele Est Pt Level 3 (60161) Complex EM visit Add On G2211 Diagnoses Lung nodules R91.8 Cervical adenopathy R59.0 Assessment & Plan Assessment & Plan (1) Lung nodules: Code(s): R91.8 - Other nonspecific abnormal finding of lung field Category: Medical (2) Cervical adenopathy: Code(s): R59.0 - Localized enlarged lymph nodes Category: Medical Plan . Orders: Referrals Pulmonology Referral R91.8 - Other nonspecific abnormal finding of lung field
--- OUTSIDE RECORDS SUMMARY | 2025-03-17 18:09 | XMS_ITS | Encounter Summary ---
Author Organization [facility] Address [address] [place] [address] Phone Care Team Providers Care Sandblast Carver Name Role Phone Jasmyn Banda MD Primary Care Provider [phone] Encounter Details Date Type Department Care Team (Late st Contact Info) Description 04/01/2017 Documentation [facility] [place] Family Medicine [address] [place] [address] Family Medicine, Physician [address] [place], [place] [address] Social History Tobacco Use Types Packs/Day Years [...] on filedocumented in this encounter Care Teams Sandblast Carver Relationship Specialty Start Date End Date Jasmyn Banda MD [address] [place] [address] PCP - General Pediatrics 02/01/23 09/22/24 documented as of this encounter
--- OUTSIDE RECORDS SUMMARY | 2025-03-17 18:09 | XMS_ITS | Encounter Summary ---
Author Organization [facility] Address [address] [place] [address] Phone Care Team Providers Care Desktop Support Manager Name Role Phone Jasmyn Banda MD Primary Care Provider [phone] Encounter Details Date Type Department Care Team (Late st Contact Info) Description 01/23/2017 Documentation [facility] [place] [address] [place] [address] Family Medicine, Physician [address] [place], [place] [address] Social History Tobacco Use Types Packs/Day Years [...] on filedocumented in this encounter Care Teams Desktop Support Manager Relationship Specialty Start Date End Date Jasmyn Banda MD [address] [place] [address] PCP - General Pediatrics 02/01/23 09/22/24 documented as of this encounter
--- OUTSIDE RECORDS SUMMARY | 2025-03-17 18:09 | XMS_ITS | Clinical Summary ---
Author Organization [facility] Address [address] [place] [address] Phone Care Team Providers Care Managing Manager Name Role Phone Unavailable Primary Care [...] Completed 05/13/2018, 013 Procedures * Due to [place] law, this organization might not be sharing sensitive test results. Procedure Name Priority Date/Time Associated Diagnosis Comments CHLAMYDIA TRACHOMATIS, AMPLIFIED Routine 11/04/2019 11:59 AM EST Screening for chlamydial disease from Last 3 Months or Most Recently Relevant to Health Maintenance Results * Due to [place] law, this organization might not be sharing sensitive test results. * Chlamydia trachomatis, Amplified (11/04/2019 11:59 AM EST) Chlamydia trachomatis RNA, TMA Not Detected Not Detected 11/05/2019 9:22 AM EST [facility] Urine 11/04/2019 11:5 9 AM EST 11/04/2019 1:54 PM EST us Jaimee Khalil ENGRAVING PATTERNMAKER LAB BLOOD ORDERABLES Final Re sult [facility] from Last 3 Months or Most Recently Relevant to Health Maintenance [place] [address] [place] [address] HEALTHCARE
--- OUTSIDE RECORDS SUMMARY | 2025-03-17 18:09 | XMS_ITS | Encounter Summary ---
Author Organization [facility] Address [address] [place] [address] Phone Care Team Providers Care Art Dealer Name Role Phone Jasmyn Banda MD Primary Care Provider [phone] Encounter Details Date Type Department Care Team (Late st Contact Info) Description 03/04/[address] [facility] [place] Family Medicine [address] [place] [address] Family Medicine, Physician [address] [place], [place] [address] Social History Tobacco Use Types Packs/Day Years [...] on filedocumented in this encounter Care Teams Art Dealer Relationship Specialty Start Date End Date Jasmyn Banda MD [address] [place] [address] PCP - General Pediatrics 02/01/23 09/22/24 documented as of this encounter
--- OUTSIDE RECORDS SUMMARY | 2025-03-17 18:09 | XMS_ITS | Encounter Summary ---
Author Organization [facility] Address [address] [place] [address] Phone Care Team Providers Care Service Order Dispatcher Name Role Phone Jasmyn Banda MD Primary Care Provider [phone] Encounter Details Date Type Department Care Team (Late st Contact Info) Description 07/18/2017 Conversion Encounter [facility] - [address] [address] Social History Tobacco Use Types Packs/Day Years [...] on filedocumented in this encounter Care Teams Service Order Dispatcher Relationship Specialty Start Date End Date Jasmyn Banda MD [address] [place] [address] [address] [place] [address] PCP - General Pediatrics 02/01/23 09/22/24 documented as of this encounter
--- OUTSIDE RECORDS SUMMARY | 2025-03-17 18:09 | XMS_ITS | Encounter Summary ---
Author Organization [facility] Address [address] [place] [address] Phone Care Team Providers Care Applications Analyst Name Role Phone Jasmyn Banda MD Primary Care Provider [phone] Encounter Details Date Type Department Care Team (Late st Contact Info) Description 07/22/[address] [facility] [place] Family Medicine [address] [place] [address] Family Medicine, Physician [address] [place], [place] [address]471 Social History Tobacco Use Types Packs/Day Years [...] on filedocumented in this encounter Care Teams Applications Analyst Relationship Specialty Start Date End Date Jasmyn Banda MD [address] [place] [address] PCP - General Pediatrics 02/01/23 09/22/24 documented as of this encounter
--- OUTSIDE RECORDS SUMMARY | 2025-03-17 18:09 | XMS_ITS | Patient Health Record ---
Author Organization [facility] Address [address] [facility] [address] [place] [address] Care Team Providers Care Gas Booster Engineer Name Role Phone TESSY CORTES Primary Care Provider TESSY Dunn Unavailable [phone] Allergies No Known Allergies Reason For Referral No Information Plan Of Treatment No Information Insurance Providers Payer Name Payer Address Payer Phone Subscriber Number Group Number Insured Name Patient Relationship to Insured Coverage Start Date Coverage End Date [facility] [address] [place] [phone] [id number] ANITA PEREZ Self - patient is the insured Medical (General) History Medical History History ICD Code back pain
--- OUTSIDE RECORDS SUMMARY | 2025-03-17 18:09 | XMS_ITS | Encounter Summary ---
Author Organization [facility] Address [address] [place] [address] Phone Care Team Providers Care Route Sales Representative Name Role Phone Jasmyn Banda MD Primary Care Provider [phone] Reason for Visit * Reason Comments Med Refill Encounter Details Date Type Department Care Team (Late st Contact Info) Description 06/30/2019 Refill [facility] Pediatrics - [address] [id number] Jhoana Morton MD Acne vulgaris Social History [...] acne documented in this encounter Care Teams Route Sales Representative Relationship Specialty Start Date End Date Jasmyn Banda MD [address] [place] [address] PCP - General Pediatrics 02/01/23 09/22/24 documented as of this encounter
--- OUTSIDE RECORDS SUMMARY | 2025-03-17 18:09 | XMS_ITS | Encounter Summary ---
Author Organization [facility] Address [address] [place] [address] Phone Care Team Providers Care Reordering Clerk Name Role Phone Jasmyn Banda MD Primary Care Provider [phone] Encounter Details Date Type Department Care Team (Late st Contact Info) Description 07/03/2017 Documentation [facility] [place] Family Medicine [address] [place] [address] Family Medicine, Physician [address] [place], [place] [address]461 Social History Tobacco Use Types Packs/Day Years [...] on filedocumented in this encounter Care Teams Reordering Clerk Relationship Specialty Start Date End Date Jasmyn Banda MD [address] [place] [address] PCP - General Pediatrics 02/01/23 09/22/24 documented as of this encounter
--- OUTSIDE RECORDS SUMMARY | 2025-03-17 18:09 | XMS_ITS | Encounter Summary ---
Author Organization [facility] Address [address] [place] [address] Phone Care Team Providers Care Director Of Food And Nutrition Services Name Role Phone Jasmyn Banda MD Primary Care Provider [phone] Encounter Details Date Type Department Care Team (Late st Contact Info) Description 07/18/2017 Documentation [facility] [place] [address] [place] [address] Family Medicine, Physician [address] [place], [place] [address] Social History Tobacco Use Types Packs/Day Years [...] filedocumented in this encounter Care Teams Director Of Food And Nutrition Services Relationship Specialty Start Date End Date Jasmyn Banda MD [address] [place] [address] PCP - General Pediatrics 02/01/23 09/22/24 documented as of this encounter
--- OUTSIDE RECORDS SUMMARY | 2025-03-17 18:09 | XMS_ITS | Encounter Summary ---
Author Organization [facility] Address [address] [place] [address] Phone Care Team Providers Care Fluid Pump Operator Name Role Phone Jasmyn Banda MD Primary Care Provider [phone] Encounter Details Date Type Department Care Team (Late st Contact Info) Description 05/01/[address] [facility] [place] Family Medicine [address] [place] [address] Family Medicine, Physician [address] [place], [place] [address] Social History Tobacco Use Types Packs/Day Years [...] on filedocumented in this encounter Care Teams Fluid Pump Operator Relationship Specialty Start Date End Date Jasmyn Banda MD [address] [place] [address] PCP - General Pediatrics 02/01/23 09/22/24 documented as of this encounter
== END 2025-03-17 17:09 | disposition home or self-care (01) ==
LOC: HO.HMCFM 15:48
PROVIDERS: PCP Nurse Practitioner Family; Visit Provider Nurse Practitioner Family
DX: R91.8 Other nonspecific abnormal finding of lung field (principal); R59.0 Localized enlarged lymph nodes

== ENCOUNTER → 2025-03-17 15:48 | Outpatient (BNVA) | payer BC, SELFPAY | PROVIDERS: PCP Nurse Practitioner Family; Visit Provider Nurse Practitioner Family | DX: R59.0 Localized enlarged lymph nodes (principal); R91.8 Other nonspecific abnormal finding of lung field | CPT/HCPCS: 98967 ==

== ENCOUNTER 2025-04-21 14:16 | Outpatient (AMB) | payer BC, SELFPAY ==
--- NOTE | 2025-04-21 14:18 | MHC.OFFVIS ---
Vital Signs 04/21/25 14:19 Height 5 ft 3 in Weight 156 lb 6 oz BMI 27.7 BP 110/72 Blood Pressure Location Lt brachial Position Sitting Pulse 77 Pulse Source Pulse Oximeter Pulse Oximetry (%) 99 Oxygen Delivery Method Room Air Intake Visit Reasons: Pulmonary Nodules Allergies No Known Allergies [No Known Allergies*] Allergy (Verified 04/21/25 14:21) HPI HPI Pulmonary Nodules: Details: Leila is a pleasant 24-year-old female, never smoker with underlying seasonal allergies. She was referred by PCP after she underwent neck CT for enlarged lymph nodes with incidental finding of upper lobe pulmonary nodules. CT revealed 2 small nodules within the right lung measuring largest 5 mm. She denies prior abnormal chest imaging. She denies any recent upper respiratory infections. She currently denies any respiratory symptoms. She denies any history of asthma. 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 She denies any personal history of autoimmune conditions. She denies any joint pain, skin rashes/changes, fevers, chills or weight loss. She reports father with possible autoimmune condition, unknown. [facility] Medical History (Updated 03/17/25 @ 17:00 by Larisa Nichols, DEALER CARD ROOM-) Fracture of second metacarpal bone of left hand Fracture of second metacarpal bone Hand fracture, left Spinal compression fracture Spinal fracture of T12 vertebra Surgical History No pertinent past surgical history Family History Father Mental health disorder Paternal Grandfather Cancer Paternal Grandmother Cancer Maternal Grandmother Cancer Diabetes Brother Asthma Mother Thyroid disease Social History Household Members: Family Both parents involved: No Caregiver staying overnight: No Housing: House Are you a primary career services director to a significant other at home: No Do you presently have visiting nurse or other home services: No 75 years or older and lives alone: No Alcohol intake: current Alcohol intake frequency: a few times a month Patient Tobacco Use Status: Never used Tobacco e-Cigarette/Vaping Use: Never Used Second Hand Smoke Exposure: No service: No Current occupational status: employed 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 Cognitive needs: No Hearing needs: No Vision needs: Yes (wear glasses) Review of Systems Const Denies chills, Denies excessive sweating, Denies fever(s), Denies headache(s) and Denies night sweats Eyes Denies dry eyes, Denies irritation and Denies itchy eyes ENT Reports Normal hearing present, Denies headache(s), Denies nasal congestion, Denies nasal discharge, Denies post nasal drip and Denies sore throat Card Denies chest pain, Denies chest pain at rest, Denies chest pain with activity, Denies claudication, Denies leg edema, Denies dyspnea, Denies dyspnea on exertion, Denies orthopnea and Denies paroxysmal nocturnal dyspnea Resp Denies chest congestion, Denies cough, Denies excessive phlegm production, Denies pain on inspiration, Denies pain with cough, Denies dyspnea, Denies dyspnea on exertion, Denies stridor and Denies wheezing Musc Denies myalgias Neuro Reports Normal hearing present and Denies headache(s) Endo Denies excessive sweating Sal/Lymph Denies lymphadenopathy Aller/Immun Denies itchy eyes, Denies seasonal rhinorrhea and Denies wheezing Physical Exam Vital Signs: Last Vital Signs Pulse 77 04/21/25 14:19 BP 110/72 04/21/25 14:19 Pulse Ox 99 04/21/25 14:19 Oxygen Delivery Method Room Air 04/21/25 14:19 BMI result Body Mass Index 27.7 Const General: cooperative, healthy appearing, comfortable, no acute distress, well developed and alert Orientation/consciousness: patient oriented x3 Limitations: no limitations HEENT Head: Yes normal to inspection, Yes normocephalic and Yes atraumatic Ears: hearing grossly normal bilaterally and external ears normal Eyes General: appearance normal, both eyes and all related structures Eyelids: Yes eyelids normal Sclerae: sclerae normal EOM: EOMs intact bilaterally Neck Neck: Yes normal visual inspection and Yes no lymphadenopathy Lymphatic: no lymphadenopathy noted Chest Chest palpation & inspection: normal inspection of the chest Resp Effort & Inspection: normal respiratory effort, able to speak in complete sentences, no audible wheezes, no cough, no stridor, not tachypneic, no tripod positioning and no use of accessory muscles Auscultation: clear to auscultation bilaterally Cardio Jugular venous distension: no JVD Rate: regular rate Rhythm: regular rhythm Skin Other: warm, dry General skin exam: no rashes or lesions noted Neuro General: patient oriented x3 Cranial nerves: Yes Normal hearing present Cognition (Neuro): normal cognition Gait exam (Neuro): Normal gait present Extrem General: Yes normal to inspection, Yes capillary refill normal, Yes no clubbing, cyanosis or edema and Yes no pedal edema Psych Appearance: grossly normal and well kempt Speech and movement: Normal speech and movement present and Clear speech present Affect: normal affect Attitude: cooperative Thought process: Normal thought process present Thought content: Normal thought content present Insight: Good insight present (Psych) Judgement: Good judgement present (Psych) Results Reviewed Results Reviewed: [address] [address] [address] Scan Report Signed Patient: Leila Smith MR#: [id number] : 2000 Acct:[id number] Age/Sex: 24 / F ADM Date: 03/15/25 Loc: HO.CT Attending Dr: Larisa LIRIANO Ordering Physician: Larisa Nichols Date of Service: 03/15/25 Procedure(s): CT soft tissue neck w IV con Accession Number(s): [id number] cc: Larisa Nichols~ Report Number: [id number]: Total DLP = 277.00 mGy-cm CLINICAL HISTORY: R59.1 - Generalized enlarged lymph nodes CT soft tissue neck with contrast Comparison: None Findings: The visualized intracranial contents are unremarkable. No prevertebral fluid. Epiglottis is within normal limits. Pharyngeal mucosal space and parapharyngeal fat are normal. There are multiple small lymph nodes within the neck. Lymph nodes measure up to 1 cm in short axis dimension. A BB was placed in the area of palpable concern. Underlying the BB, there is a 7 mm short axis dimension lymph node. No suspicious mass. No fluid collection. Salivary glands are unremarkable. No sialoliths. No suspicious thyroid nodules. There are 2 small nodules within the right lung measuring 5 and 4 mm in size respectively, most likely representing benign nodules. No acute fracture or dislocation. IMPRESSION: Borderline lymphadenopathy within the neck, most likely inflammatory. This document has been electronically signed by: Shey Rojas MD on 03/15/2025 15:44:04 Dictated By: Shey Rojas MD Signed By: <Electronically signed by Shey Rojas MD in OV> 03/15/25 1544 DD/ 43 TD/TT: 03/15/251543 Systems Accountant: Assessment & Plan Assessment & Plan (1) Lung nodules: Code(s): R91.8 - Other nonspecific abnormal finding of lung field Category: Medical Plan Leila presents for pulmonary evaluation for incidental finding on neck CT pulmonary nodules of the right upper lobe, less than 5 mm in size. Will send for dedicated chest CT to thoroughly evaluate. All questions were answered and patient is in agreement of plan. Will follow-up to review results or sooner if needed. Orders: Orders CT chest wo IV con Today R91.8 - Other nonspecific abnormal finding of lung field Coding Level of Care Code New Pt Level 3 (18925) Diagnoses Lung nodules R91.8
[2025-04-21 14:19] VITALS: BP 110/72; PULSE 77; O2SAT 99; BMI 27.7
--- OUTSIDE RECORDS SUMMARY | 2025-04-21 14:38 | XMS_ITS ---
Author Organization [facility] Address [address] [facility] [address] [place] [address] Care Team Providers Care Cake Washer Name Role Phone CHAD MAGANA Primary Care Provider [phone] Benito Avila Unavailable Unavailable Encounters Encounter Location Date Provider Diagnosis [facility] [address] [facility] [address] [place] [address] 03/29/2025 CHAD MAGANA Plan Of Treatment No Information Progress Notes * ANITA PEREZDOB:2000 (24 yo F)Acc No.[id number]:03/29/2025 Patient:?ANITA PEREZ :2000???Age:24 Y???Sex:Female Address:[place] [address] * true * Date:? Generated for Olii anand/Kaitlynn/eTransmitting on:?04/21/2025 02:38 PM EDT
--- OUTSIDE RECORDS SUMMARY | 2025-04-21 14:38 | XMS_ITS | Encounter Summary ---
Author Organization [facility] Address [address] [place] [address] Phone Care Team Providers Care Cooling Tower Technician Name Role Phone Jasmyn Banda MD Primary Care Provider [phone] Reason for Visit * Reason Comments Med Refill Encounter Details Date Type Department Care Team (Late st Contact Info) Description 06/30/2019 Refill [facility] Pediatrics - [address] [id number] Jhoana Morton MD Acne vulgaris Social History [...] acne documented in this encounter Care Teams Cooling Tower Technician Relationship Specialty Start Date End Date Jasmyn Banda MD [address] [place] [address] PCP - General Pediatrics 02/01/23 09/22/24 documented as of this encounter
--- OUTSIDE RECORDS SUMMARY | 2025-04-21 14:38 | XMS_ITS | Encounter Summary ---
Author Organization [facility] Address [address] [place] [address] Phone Care Team Providers Care Soldering Machine Operator Name Role Phone Jasmyn Banda MD Primary Care Provider [phone] Encounter Details Date Type Department Care Team (Late st Contact Info) Description 05/01/2017 Documentation [facility] [place] Family Medicine [address] [place] [address] Family Medicine, Physician [address] [place], [place] 7923[address] Social History Tobacco Use Types Packs/Day Years [...] on filedocumented in this encounter Care Teams Soldering Machine Operator Relationship Specialty Start Date End Date Jasmyn Banda MD [address] [place] [address] PCP - General Pediatrics 02/01/23 09/22/24 documented as of this encounter
--- OUTSIDE RECORDS SUMMARY | 2025-04-21 14:38 | XMS_ITS | Encounter Summary ---
Author Organization [facility] Address [address] [place] [address] Phone Care Team Providers Care Strapping Machine Tender Name Role Phone Jasmyn Banda MD Primary Care Provider Encounter Details Date Type Department Care Team (Late st Contact Info) Description 07/03/2017 Documentation [facility] [place] Family Medicine [address] [place] [address] Family Medicine, Physician [address] [place], [place] [address] Social History Tobacco Use Types Packs/Day Years [...] on filedocumented in this encounter Care Teams Strapping Machine Tender Relationship Specialty Start Date End Date Jasmyn Banda MD [address] [place] [address] PCP - General Pediatrics 02/01/23 09/22/24 documented as of this encounter
--- OUTSIDE RECORDS SUMMARY | 2025-04-21 14:38 | XMS_ITS | Encounter Summary ---
Author Organization [facility] Address [address] [place] [address] Phone Care Team Providers Care Pipe Racker Name Role Phone Jasmyn Banda MD Primary Care Provider [phone] Encounter Details Date Type Department Care Team (Late st Contact Info) Description 03/04/2017 Documentation [facility] [place] Family Medicine [address] [place] [address] Family Medicine, Physician [address] [place], [place] 6[address]121 Social History Tobacco Use Types Packs/Day Years [...] on filedocumented in this encounter Care Teams Pipe Racker Relationship Specialty Start Date End Date Jasmyn Banda MD [address] [place] [address] PCP - General Pediatrics 02/01/23 09/22/24 documented as of this encounter
--- OUTSIDE RECORDS SUMMARY | 2025-04-21 14:38 | XMS_ITS | Encounter Summary ---
Author Organization [facility] Address [address] [place] [address] Phone Care Team Providers Care Warehouse Checker Name Role Phone Jasmyn Banda MD Primary Care Provider Encounter Details Date Type Department Care Team (Late st Contact Info) Description 07/18/2017 Documentation [facility] [place] [address] [place] [address] Family Medicine, Physician [address] [place], [place] 811891 Social History Tobacco Use Types Packs/Day Years [...] on filedocumented in this encounter Care Teams Warehouse Checker Relationship Specialty Start Date End Date Jasmyn Banda MD [address] [place] [address] PCP - General Pediatrics 02/01/23 09/22/24 documented as of this encounter
--- OUTSIDE RECORDS SUMMARY | 2025-04-21 14:38 | XMS_ITS ---
Author Organization [facility] Address [address] [facility] [address] [place] [address] Care Team Providers Care Inventory Planner Name Role Phone CHAD MAGANA Primary Care Provider Benito Avila Unavailable Unavailable REASON FOR VISIT notes/labs Encounters Encounter Location Date Provider Diagnosis [facility] [address] [facility] [address] [place] [address] 03/29/2025 CHAD MAGANA Plan Of Treatment No Information Progress Notes * ANITA PEREZDOB:2000 (24 yo F)Acc No.[id number]:03/29/2025 Patient:?ANITA PEREZ :2000???Age:24 Y???Sex:Female Address:[place] [address] * true * Date:? Generated for Sanjuanita michel/Kaitlynn/eTransmitting on:?04/21/2025 02:37 PM EDT
--- OUTSIDE RECORDS SUMMARY | 2025-04-21 14:38 | XMS_ITS | Encounter Summary ---
Author Organization [facility] Address [address] [place] [address] Phone Care Team Providers Care Rim Roller Operator Name Role Phone Jasmyn Banda MD Primary Care Provider Encounter Details Date Type Department Care Team (Late st Contact Info) Description 07/18/2017 Conversion Encounter [facility] - [address] [address] Social History Tobacco Use Types Packs/Day Years [...] on filedocumented in this encounter Care Teams Rim Roller Operator Relationship Specialty Start Date End Date Jasmyn Banda MD [address] [place] [address] [address] [place] [address] PCP - General Pediatrics 02/01/23 09/22/24 documented as of this encounter
--- OUTSIDE RECORDS SUMMARY | 2025-04-21 14:38 | XMS_ITS ---
Author Organization [facility] Address [address] [facility] [address] [place] [address] Care Team Providers Care Mutuel Cashier Name Role Phone CHAD MAGANA Primary Care Provider Benito Avila Unavailable Unavailable Encounters Encounter Location Date Provider Diagnosis [facility] [address] [facility] [address] [place] [address] 03/27/2025 CHAD MAGANA Plan Of Treatment No Information Progress Notes * ANITA PEREZDOB:2000 (24 yo F)Acc No.[id number]:03/27/2025 Patient:?ANITA PEREZ :2000???Age:24 Y???Sex:Female Address:[place] [address] * true * Date:? Generated for Olii anand/Kaitlynn/eTransmitting on:?04/21/2025 02:38 PM EDT
--- OUTSIDE RECORDS SUMMARY | 2025-04-21 14:38 | XMS_ITS | Encounter Summary ---
Author Organization [facility] Address [address] [place] [address] Phone Care Team Providers Care Food Clerk Name Role Phone Jasmyn Banda MD Primary Care Provider [phone] Encounter Details Date Type Department Care Team (Late st Contact Info) Description 04/01/2017 Documentation [facility] [place] [address] [place] [address] Family Medicine, Physician [address] [place], [place] [address] Social History Tobacco Use Types Packs/Day Years [...] on filedocumented in this encounter Care Teams Food Clerk Relationship Specialty Start Date End Date Jasmyn Banda MD [address] [place] [address] PCP - General Pediatrics 02/01/23 09/22/24 documented as of this encounter
--- OUTSIDE RECORDS SUMMARY | 2025-04-21 14:38 | XMS_ITS | Encounter Summary ---
Author Organization [facility] Address [address] [place] [address] Phone Care Team Providers Care Residential Remodeling Subcontractor Name Role Phone Jasmyn Banda MD Primary Care Provider [phone] Encounter Details Date Type Department Care Team (Late st Contact Info) Description 07/22/2017 Documentation [facility] [place] Family Medicine [address] [place] [address] Family Medicine, Physician [address] [place], [place] 408[address] Social History Tobacco Use Types Packs/Day Years [...] on filedocumented in this encounter Care Teams Residential Remodeling Subcontractor Relationship Specialty Start Date End Date Jasmyn Banda MD [address] [place] [address] PCP - General Pediatrics 02/01/23 09/22/24 documented as of this encounter
--- OUTSIDE RECORDS SUMMARY | 2025-04-21 14:38 | XMS_ITS | Encounter Summary ---
Author Organization [facility] Address [address] [place] [address] Phone Care Team Providers Care Control Analyst Name Role Phone Jasmyn Banda MD Primary Care Provider [phone] Encounter Details Date Type Department Care Team (Late st Contact Info) Description 01/23/2017 Documentation [facility] [place] [address] [place] [address] Family Medicine, Physician [address] [place], [place] 1179[address] Social History Tobacco Use Types Packs/Day Years [...] on filedocumented in this encounter Care Teams Control Analyst Relationship Specialty Start Date End Date Jasmyn Banda MD [address] [place] [address] PCP - General Pediatrics 02/01/23 09/22/24 documented as of this encounter
--- OUTSIDE RECORDS SUMMARY | 2025-04-21 14:38 | XMS_ITS | Clinical Summary ---
Author Organization [facility] Address [address] [place] [address] Phone Care Team Providers Care Acid Recovery Operator Name Role Phone Unavailable Primary Care [...] Completed 05/13/2018, 013 Procedures * Due to [place] [employer] law, this organization might not be sharing sensitive test results. Procedure Name Priority Date/Time Associated Diagnosis Comments CHLAMYDIA TRACHOMATIS, AMPLIFIED Routine 11/04/2019 11:59 AM EST Screening for chlamydial disease from Last 3 Months or Most Recently Relevant to Health Maintenance Results * Due to [place] [employer] law, this organization might not be sharing sensitive test results. * Chlamydia trachomatis, Amplified (11/04/2019 11:59 AM EST) Chlamydia trachomatis RNA, TMA Not Detected Not Detected 11/05/2019 9:22 AM EST [facility] Urine 11/04/2019 11:5 9 AM EST 11/04/2019 1:54 PM EST us Jaimee Khalil NP LAB MICROBIOLOGY - GENERAL OR DERABLES Final Result [facility] from Last 3 Months or Most Recently Relevant to Health Maintenance [place] [address] [place] [address] HEALTHCARE
--- OUTSIDE RECORDS SUMMARY | 2025-04-21 14:38 | XMS_ITS | Patient Health Record ---
Author Organization [facility] Address [address] [facility] [address] [place] [address] Care Team Providers Care Nurse Office Name Role Phone CHAD MAGANA Primary Care Provider Benito Avila Unavailable Unavailable Allergies No Known Allergies Results Component Value Reference Range Notes Test, Urine Reviewed date:03/26/2025 02:10:51 PM Interpretation:Negative Performing Lab: Notes/Report: Negative Urinalysis, Routine Reviewed date:03/26/2025 02:12:25 PM Interpretation: Performing Lab: Notes/Report: BLOOD neg UBG norm HARDY neg PROTEIN neg NITRATE neg KETONES neg ASC 10 GLUCOSE neg pH 7 SG 1.005 NITESH neg Reason For Referral No Information Vital Signs Heart Rate 80 /min 03/26/2025 Temperature 98.2 degrees Fahrenheit 03/26/2025 Respiratory Rate 18 /min 03/26/2025 Oximetry 98 % 03/26/2025 Blood pressure diastolic 80 mm Hg 03/26/2025 Height 63 in 03/26/2025 Blood pressure systolic 118 mm Hg 03/26/2025 Weight 154 lbs 03/26/2025 BMI 27.28 kg/m2 03/26/2025 Encounters Encounter Location Date Provider Diagnosis [facility] [address] [facility] [address] [place] [address] 03/26/2025 CHAD MAGANA Abdominal pain, acute, right lower quadrant R10.31 [facility] [address] [facility] [address] [place] [address] 03/27/2025 CHAD MAGANA [facility] [address] [facility] [address] [place] [address] 03/29/2025 [facility] [address] [facility] [address] [place] [address] 03/29/2025 CHAD MAGANA Assessments Encounter Date Diagnosis (ICD Code) Assessment Notes Treatment Notes Treatment Clinical Notes Section Notes 03/26/2025 Abdominal pain, acute, right lower quadrant (ICD-10 - R10.31) Patient presented today for evaluation of right lower quadrant pain for the past 2 days. Patient's exam and history was most suggestive of a muscle strain of the right internal oblique abdominal muscle, but patient will be sent for ultrasound of RLQ to rule out appendicitis. Patient advised to go to the hospital [facility] if she develops nausea, vomiting, severe pain, constipation, or fevers. For now, pain can be managed with ibuprofen and/or methocarbamol (muscle relaxer) which was prescribed. DO NOT DRINK ALCOHOL, DRIVE, OR OPERATE MACHINERY ON MUSCLE RELAXER. Patient will be contacted if her ultrasound results are in any way abnormal. Make sure to stay hydrated and get plenty of rest over the next few days. Call the office with any new, worsening, or persisting symptoms. Call office with any questions or concerns. Patient informed of risks/side effects of taking prescribed medicine and patient demonstrated understanding of these and is in agreement with treatment plan. Patient agrees to read the prescription information packet attached to the prescription in its entirety before deciding whether to take the medicine (taking prescribed medicine is voluntary, and patient should only take it if they can give informed consent to take it by reading attached information packet and/or asking pharmacists any questions patient has about the medicine). Patient agreed to follow up with concerns of side effects and/or go to emergency room if indicated. 24 year old female presents with complaints of right lower quadrant abdominal pain for the last 2 days. Patient notes that the pain ranges between 4/10 and brief spikes of 6/10 pain. Patient denies any prior history of these symptoms, and patient has never had appendectomy. No jaundrice, fever, or altered mental status, so low suspicion for cholangitis. Exam was not suggestive of appendicitis, but rather abdominal muscle strain. Plan Of Treatment No Information Insurance Providers Payer Name Payer Address Payer Phone Subscriber Number Group Number Insured Name Patient Relationship to Insured Coverage Start Date Coverage End Date [address] [address] [id number] ANITA PEREZ Self - patient is the insured [facility] [address] [place] [address] [id number] ANITA PEREZ Self - patient is the insured Medical (General) History Medical History History ICD Code back pain Surgical History Surgery Date(Month/Year) Ear Tubes
== END 2025-04-21 15:28 | disposition home or self-care (01) ==
LOC: HO.HPSW 14:16
PROVIDERS: PCP Nurse Practitioner Family; Referring Provider Nurse Practitioner Family; Visit Provider Nurse Practitioner Family
DX: R91.8 Other nonspecific abnormal finding of lung field (principal)
CPT/HCPCS: 99203

== ENCOUNTER → 2025-04-21 14:16 | Outpatient (BNVA) | payer BC, SELFPAY | PROVIDERS: PCP Nurse Practitioner Family; Referring Provider Nurse Practitioner Family; Visit Provider Nurse Practitioner Family ==

== ENCOUNTER 2025-05-18 11:41 | Outpatient (REF) | payer BC, SELFPAY ==
--- NOTE | ~2025-05-18 | XR_ITS ---
CLINICAL HISTORY: M62.552 - Muscle wasting and atrophy, not elsewhere classified, left thigh --- Additional Notes or Special Instructions: evaluate any mass on femur 2 view left femur Comparison: None provided Findings: No fractures or dislocations. No knee effusion. No significant arthritic change. No radiopaque foreign body. IMPRESSION: 1. Normal left femur This document has been electronically signed by: David Shore MD on 05/19/2025 11:36:46
--- NOTE | ~2025-05-18 | XR_ITS ---
CLINICAL HISTORY: M54.9 - Dorsalgia, unspecified --- Additional Notes or Special Instructions: evaluate foraminal stenosis left side L4-5 2 views lumbar spine Comparison: None provided Findings: Normal vertebral body alignment. No acute fractures or dislocation. There are pars defects at L4, without resulting anterolisthesis. Mild chronic appearing height loss at T12. 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 Mild chronic appearing height loss at T12. This document has been electronically signed by: David Shore MD on 05/19/2025 11:36:30
== END 2025-05-18 11:42 | disposition home or self-care (01) ==
LOC: HO.HOSX 11:41
PROVIDERS: PCP Nurse Practitioner Family; Visit Provider Physical Medicine & Rehabilitation
DX: M62.552 Muscle wasting and atrophy, not elsewhere classified, left thigh (principal); M54.9 Dorsalgia, unspecified
CPT/HCPCS: 72100; 73552

== ENCOUNTER 2025-05-18 11:41 | Outpatient (AMB) | payer BC, SELFPAY ==
--- NOTE | 2025-05-18 11:42 | A.OFFVIS_ITS ---
Vital Signs 05/18/25 11:42 Height 5 ft 3 in Intake Visit Reasons: OV- LT quadriceps muscles pain f/u Intake Note: Leila is a 24 year old female who presents today for a follow up of her Left quadriceps muscle pain. Patient was told at last visit to continue with exercises at home to further strengthen quadriceps and lower body. Patient reports that she feels worse than last visit and has noticed a decrease in strength. Patient then added that she has noticed a radiating pain into the knee, she states that it was from over doing it with exercise. Allergies No Known Allergies [No Known Allergies*] Allergy (Verified 05/18/25 11:47) Medication List - Last Reconciled 05/18/25 by Jacklyn Reyna MD No Known Home Meds HPI Comments Details: She follows Orthopedics, status post left hand fx, DOI 10/20/23. Reviewed notes from PCP, they tried to obtain MRI quadriceps but denied by insurance. 3 compression fractures around age 16, T12, L4 and another, from gymnastics/dance. Treated with rest and PT. Not sure about severity. It was a chiropractor who ordered xray and diagnosed her. Left pulled muscle injury 4 years ago, in HS, possibly during swimming. Noted dent on left proxima/mid quadriceps one year ago. But no change in strength. Only maybe slightly weaker when she squats. Nowadays, no pain. Feels numb on that area. Lack of strength. No knee buckling or falls. Residual back pain from injuries, when she sits for a long time, non radicular, and sees chiropractor. Patient states that she feels worse than last visit. She stated that she has noticed that her left quadriceps is getting weaker. She added that she has noticed ever since she worked out about a week ago she has noticed the pain is going into the left knee. Feels the dent is bigger. More sore after working. No twitching. But can refer down to left knee. On/off back pain, depending on working out. Could have 3 severe episodes per year of back pain. No other atrophy or twitchind or weakness on other parts of body. [facility] Medical History (Updated 03/17/25 @ 17:00 by Larisa Nichols, ADVERTISING COPY WRITER-) Fracture of second metacarpal bone of left hand Fracture of second metacarpal bone Hand fracture, left Spinal compression fracture Spinal fracture of T12 vertebra Surgical History No pertinent past surgical history Family History Father Mental health disorder Paternal Grandfather Cancer Paternal Grandmother Cancer Maternal Grandmother Cancer Diabetes Brother Asthma Mother Thyroid disease Social History Household Members: Family Both parents involved: No Caregiver staying overnight: No Housing: House Are you a primary animal care supervisor to a significant other at home: No Do you presently have visiting nurse or other home services: No 75 years or older and lives alone: No Alcohol intake: current Alcohol intake frequency: a few times a month Patient Tobacco Use Status: Never used Tobacco e-Cigarette/Vaping Use: Never Used Second Hand Smoke Exposure: No service: No Current occupational status: employed 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 Patient was appropriately conversant and oriented. Good historian. MSK: There is a dent on left mid quadriceps muscle, possibly 1 in, but would not describe it as atrophied. When she contracts quadriceps, it feels pump PE. There is no weakness on quadriceps or hamstrings. No allodynia. No hypersensitivity. No numbness to touch. Strength is 5/5 in all muscle groups tested. No increased tone noted. Neurological: Neurologic examination of the upper and lower extremities was nonfocal with intact sensation, muscle stretch reflexes and without focal motor deficits . Babinski was down going bilaterally. Clonus was negative. Gait is non-antalgic without loss of balance. Patient was able to perform heel walk and toe walk. She is able to squat. 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 However, given that it is still causing discomfort and some amount of weakness to the patient, we should rule out any underlying pathology. Lumbar x-rays and femur x-rays ordered and will be done today. Patient had undergone adequate conservative management without improvement of condition. It would be reasonable to obtain further imaging such as MRI. An MRI would help rule out any serious condition, guide treatment and assess prognosis for recovery. Specifically ruling out underlying mass or to confirm quadriceps tear. Assessment and plan discussed with patient, and patient was agreeable. All questions were answered thoroughly. Follow up after imaging results. Jacklyn Reyna MD, ANTONELLA Board Certified, [place] Board [employer] and Rehabilitation (ABPMR) Board Certified, [place] Board of Electrodiagnostic Medicine (ABEM) Orders: Orders XR lumbar spine 2-3V Today M54.9 - Dorsalgia, unspecified, M62.552 - Muscle wasting and atrophy, not elsewhere classified, left thigh MR femur LT wo con Today M62.552 - Muscle wasting and atrophy, not elsewhere classified, left thigh XR femur LT 2V Today M62.552 - Muscle wasting and atrophy, not elsewhere classified, left thigh Coding Level of Care Code Est Pt Level 4 (11301) Diagnoses Atrophy of quadriceps femoris muscle of left thigh M62.552
--- OUTSIDE RECORDS SUMMARY | 2025-05-18 13:18 | XMS_ITS | Encounter Summary ---
Author Organization [facility] Address [address] [place] [address] Phone Care Team Providers Care Batch Maker Name Role Phone Jasmyn Banda MD Primary Care Provider [phone] Reason for Visit * Reason Comments Med Refill Encounter Details Date Type Department Care Team (Late st Contact Info) Description 06/30/2019 Refill [facility] - [address] [phone] Jhoana Morton MD Acne vulgaris Social History [...] acne documented in this encounter Care Teams Batch Maker Relationship Specialty Start Date End Date Jasmyn Banda MD [address] [place] [address] PCP - General Pediatrics 02/01/23 09/22/24 documented as of this encounter
== END 2025-05-18 12:54 | disposition home or self-care (01) ==
PROVIDERS: PCP Nurse Practitioner Family; Visit Provider Physical Medicine & Rehabilitation
DX: M62.552 Muscle wasting and atrophy, not elsewhere classified, left thigh (principal)
CPT/HCPCS: 99214

== ENCOUNTER → 2025-05-18 12:05 | Outpatient (BNV) | payer BC, SELFPAY | PROVIDERS: PCP Nurse Practitioner Family; Visit Provider Radiology Vascular & Interventional Radiology | DX: M54.9 Dorsalgia, unspecified (principal); M62.552 Muscle wasting and atrophy, not elsewhere classified, left thigh | CPT/HCPCS: 72100; 73552 ==

== ENCOUNTER → 2025-07-14 08:18 | Outpatient (BNV) | payer BC, SELFPAY | PROVIDERS: PCP Nurse Practitioner Family; Visit Provider Radiology Diagnostic Radiology | DX: M62.552 Muscle wasting and atrophy, not elsewhere classified, left thigh (principal) | CPT/HCPCS: 73718 ==

== ENCOUNTER 2025-07-14 08:27 | Outpatient (REF) | payer BC, SELFPAY ==
--- NOTE | ~2025-07-14 | MR_ITS ---
CLINICAL HISTORY: M62.552 - Muscle wasting and atrophy, not elsewhere classified, left thigh --- Additional Notes or Special Instructions: evaluate quadriceps tear Exam: MRI of the left femur without intravenous contrast. Comparison: Radiographs May 18, 2025. Findings: Large [id number] coronal imaging was performed through both thighs. No significant asymmetry of the thigh musculature. Specifically, there is no asymmetric atrophy of the left thigh musculature compared to the right side musculature. Increased T2 signal intensity seen involving the myotendinous junction of the mid right rectus femoris muscle. There are areas of subtle fatty infiltration within the left rectus femoris muscle near the myotendinous junction of the mid thigh. However, no significant global fatty atrophy of the left rectus femoris muscle. No muscle or tendon tear. Bone marrow signal intensity is within normal limits. No mass lesions are identified. Subcutaneous tissues unremarkable. Impression: 1. Mild fatty infiltration and edema within the mid left rectus femoris muscle at the myotendinous junction. No global fatty atrophy of the left thigh musculature is seen. The appearance of the rectus femoris muscle would suggest prior injury with subsequent fatty replacement. This document has been electronically signed by: Holland Valentin MD on 07/15/2025 08:41:30
--- OUTSIDE RECORDS SUMMARY | 2025-07-14 08:41 | XMS_ITS | Encounter Summary ---
Author Organization [facility] Address [address] [place] [address] Phone Care Team Providers Care Containers Sales Representative Name Role Phone Jasmyn Banda MD Primary Care Provider [phone] Reason for Visit * Reason Comments Med Refill Encounter Details Date Type Department Care Team (Late st Contact Info) Description 06/30/2019 Refill [facility] - [address] [phone] Jhoana Morton MD Acne vulgaris Social History [...] acne documented in this encounter Care Teams Containers Sales Representative Relationship Specialty Start Date End Date Jasmyn Banda MD [address] [place] [address] PCP - General Pediatrics 02/01/23 09/22/24 documented as of this encounter
--- OUTSIDE RECORDS SUMMARY | 2025-07-14 08:42 | XMS_ITS | Clinical Summary ---
Author Organization [facility] Address [address] [address] Phone Care Team Providers Care Vessel Crew Member Name Role Phone Jhoana Morton MD Primary Care Provider Allergies No known active allergies Medications No known medications Active Problems No known active problems Social History Tobacco Use Types Packs/Day Years Used Date Smoking Tobacco: Never Smokeless Tobacco: Never Tobacco Cessation:Counseling Given: No Education Answer Date Recorded Are you interested in more education? Not on melvina e 03/29/2023 Are you concerned about learning? Not on file 03/29/2023 No 03/29/2023 No 03/29/2023 Digital Access Answer Date Recorded No 04/26/2023 No 04/26/2023 No 04/26/2023 Reliable internet access at home? Not on file 04/26/2023 Device with a working camera? Not on file Comments Unknown Sex and Gender Information Value Date Recorded Sex Assigned at Not on file Legal Sex Female 8:46 PM EDT Gender Identity Not on file Sexual Orientation Not on file Last Filed Vital Signs Vital Sign Reading Time Taken Comments Blood Pressure 116/76 10/28/2022 12:47 PM EST Pulse 81 10/28/2022 12:47 PM EST Temperature 37.3 C (99.1 F) 10/28/2022 12:47 PM EST Respiratory Rate 20 10/28/2022 12:47 PM EST Oxygen Saturation 98% 10/28/2022 12:47 PM EST Inhaled Oxygen Concentration - - Weight 61.7 kg (136 lb) 10/28/2022 12:47 PM EST Height 160 cm (5' 3 ) 10/28/2022 12:47 PM EST Body Mass Index 24.09 10/28/2022 12:47 PM EST Plan of Treatment Health Maintenance Due Date Last Done Comments DEPRESSION SCREENING 2013 SMOKING Hx and SMOKELESS TOBACCO SCREENING 2014 MENINGOCOCCAL VACCINES (B) (1 of 2 - Standard) 2017 HEPATITIS C SCREENING 2019 HIV ONE-TIME SCREENING (18-65 YEARS) 2019 CHLAMYDIA SCREENING 11/04/2020 11/04/2019 PAP SMEAR 2022 Adult Td,Tdap Booster 10/01/2022 10/01/2012 COVID-19 VACCINE ( season) 2024 07/26/2021, 07/04/2021 HIB VACCINES Aged Out 2001 No longer eligi ble based on patient's age to complete this topic PNEUMOCOCCAL VACCINES (0-49 years) Aged Out 04/28/2003, 03/11/2002, 01/09/2002, Additional history exists No longer eligible based on patient's age to complete this topic HPV VACCINES Completed 07/26/2015, 01/02, 10/30/2014 HEPATITIS A VACCINES Completed 05/13/2018, 10/10/20 16 MENINGOCOCCAL VACCINES (ACWY) Completed 05/13/2018, 09/23/2013 Medical Devices Not on file Procedures Procedure Name Priority Date/Time Associated Diagnosis Comments CHLAMYDIA TRACHOMATIS NUCLEIC ACID DETECTION Routine 11/04/2019 11:59 AM EST Encounter for screening for other infectious and parasitic diseases from Last 3 Months or Most Recently Relevant to Health Maintenance Results * Chlamydia trachomatis nucleic acid detection (11/04/2019 11:59 AM EST) CHLAMYDIA TRACHOMATIS Not Detected Not Detected [facility] 11/04/2019 11:5 9 AM EST 11/04/2019 1:54 PM EST us Jaimee Khalil CNP NON CULTUR E MICROBIOLOGY Final Result [facility] [address] [place] [address] from Last 3 Months or Most Recently Relevant to Health [place] [address] [facility] [place] [address] [facility] [place] [address] [facility] [place] [address] [facility] [place] [address] [facility] [place] [address] [facility] [place] [address] [facility] [place] [address] [facility] * Guarantor: FREDDY SMITH Account Type Relation to Patient Date of Phone Billing Address Personal/Family Father [address] [place] [address] * Guarantor: FREDDY SMITH Account Type Relation to Patient Date of Phone Billing Address Personal/Family Father [address] [place] [address] * Guarantor: FREDDY SMITH Account Type Relation to Patient Date of Phone Billing Address Personal/Family Father [address] [place] [address] * Guarantor: FREDDY SMITH Account Type Relation to Patient Date of Phone Billing Address Personal/Family Father [address] [place] [address] * Guarantor: FREDDY SMITH Account Type Relation to Patient Date of Phone Billing Address Personal/Family Father [address] [place] [address] * Guarantor: FREDDY SMITH Account Type Relation to Patient Date of Phone Billing Address Personal/Family Father [address] [place] [address] * Guarantor: FREDDY SMITH Account Type Relation to Patient Date of Phone Billing Address Personal/Family Father [address] [place] [address] * Guarantor: FREDDY SMITH Account Type Relation to Patient Date of Phone Billing Address Personal/Family Father [address] [place] [address] * Guarantor: FREDDY SMITH Account Type Relation to Patient Date of Phone Billing Address Personal/Family Father [address] [place] [address] Care Teams Vessel Crew Member Relationship Specialty Start Date End Date Jhoana Morton MD [address] [place] [address] PCP - General Pediatrics 10/28/22 Additional Source Comments The information contained in this document represents components of the legal health record. It is not the complete legal health record.[facility]
--- OUTSIDE RECORDS SUMMARY | 2025-07-14 08:42 | XMS_ITS | Patient Health Record ---
Author Organization [facility] Address [address] [facility] [address] [place] [address] Care Team Providers Care Stone Cleaner Name Role Phone CHAD MAGANA Primary Care Provider Benito Avila Unavailable Unavailable Allergies No Known Allergies Results Component Value Reference Range Notes Urinalysis, Routine Reviewed date:03/26/2025 02:12:25 PM Interpretation: Performing Lab: Notes/Report: BLOOD neg UBG norm HARDY neg PROTEIN neg NITRATE neg KETONES neg ASC 10 GLUCOSE neg pH 7 SG 1.005 NITESH neg Test, Urine Reviewed date:03/26/2025 02:10:51 PM Interpretation:Negative Performing Lab: Notes/Report: Negative Reason For Referral No Information Vital Signs Heart Rate 80 /min 03/26/2025 Temperature 98.2 degrees Fahrenheit 03/26/2025 Respiratory Rate 18 /min 03/26/2025 Oximetry 98 % 03/26/2025 Blood pressure diastolic 80 mm Hg 03/26/2025 Height 63 in 03/26/2025 Blood pressure systolic 118 mm Hg 03/26/2025 Weight 154 lbs 03/26/2025 BMI 27.28 kg/m2 03/26/2025 Encounters Encounter Location Date Provider Diagnosis [facility] [address] [facility] [address] [place] [address] 03/26/2025 CHAD MAGANA Abdominal pain, acute, right lower quadrant R10.31 [facility] [address] [facility] [address] [place] [address] 03/27/2025 CHAD MAGANA [facility] [address] [facility] [address] [place] [address] 03/29/2025 [facility] [address] [facility] [address] [place] [address] 03/29/2025 CHAD MAGANA Assessments Encounter Date Diagnosis [...] Insured Coverage Start Date Coverage End Date [address] [address] [id number] ANITA PEREZ Self - patient is the insured [facility] [address] [place] [address] [id number] ANITA PEREZ Self - patient is the insured Medical (General) History Medical History History ICD Code back pain Surgical History Surgery Date(Month/Year) Ear Tubes
== END 2025-07-14 08:28 | disposition home or self-care (01) ==
LOC: HO.MRI 08:27
PROVIDERS: PCP Nurse Practitioner Family; Visit Provider Physical Medicine & Rehabilitation
DX: M62.552 Muscle wasting and atrophy, not elsewhere classified, left thigh (principal)
CPT/HCPCS: 73718